=== PATIENT | male | born 1935 | race Caucasian/White ===

== ENCOUNTER → 2018-01-11 15:58 | Outpatient (CLI) | payer MEDICARE, SELFPAY ==
--- NOTE | 2018-01-11 16:06 | XR_ITS ---
EXAM: XR lumbar spine min 4V HISTORY: ITS.REASON: LOW BACK PAIN,H/O PROSTATE AND BLADDER CA ORDERING PHYSICIAN: Leighton Tamayo PATIENT AGE: 82 years COMPARISON: 06/11/2011, 12/23/2016 FINDINGS: Minimal dextroscoliosis. Mild degenerative disc disease is present from L1 to S1 with some decrease in the disc spaces endplate sclerosis and osteophyte formation. Facet arthritic changes are present at L4-L5 and L5-S1. No fracture or dislocation. No lytic or blastic change. There is some sclerosis of the left SI joint similar to an older exam of 06/11/2011. IMPRESSION: Lumbar spondylosis with degenerative disc disease and facet arthritic change. No fracture or bony destructive or blastic process
== END ==
PROVIDERS: PCP Internal Medicine; Visit Provider Internal Medicine
DX: M54.5 Low back pain (principal); Z85.46 Personal history of malignant neoplasm of prostate; Z85.51 Personal history of malignant neoplasm of bladder
CPT/HCPCS: 72110

== ENCOUNTER → 2018-01-25 10:14 | Outpatient (CLI) | payer MEDICARE, SELFPAY ==
--- NOTE | 2018-01-25 10:20 | CT_ITS ---
CT head/brain wo con HISTORY: ITS.REASON: VERTIGO, LOSS OF BALANCE, FORGETFULNESS ORDERING PHYSICIAN: Leighton Tamayo PATIENT AGE: 82 years COMPARISON: None TECHNIQUE: Axial images obtained without contrast. Brain and bone windows reviewed. All CT scans at the facility use one or more dose reduction, viz: automated exposure control; ma/kV adjustment per patient size (including targeted exams where dose is matched to indication; i.e. head); or iterative reconstruction technique. FINDINGS: No midline shift, mass effect, intracranial hemorrhage, hydrocephalus, or extra-axial fluid collection is evident. There is generalized atrophy with periventricular ischemic gliotic change. There is mild prominence of the occipital horn of the left lateral ventricle. This is of questioned clinical significance The calvarium has an unremarkable appearance. No mastoid effusion. No sinus air-fluid levels.. IMPRESSION: No acute intracranial findings. Atrophy with mild periventricular ischemic gliotic change and nonspecific mild prominence of the occipital horn of left lateral ventricle
== END ==
PROVIDERS: PCP Internal Medicine; Visit Provider Internal Medicine
DX: R42 Dizziness and giddiness (principal)
CPT/HCPCS: 70450

== ENCOUNTER → 2019-05-11 07:39 | Outpatient (CLI) | payer MEDICARE, SELFPAY ==
--- NOTE | 2019-05-11 08:14 | CA_ITS ---
APPROVED REPORT EXAM: Comprehensive 2D, Doppler, and color-flow Echocardiogram Global Compensation Manager: Myra Bonds RVT Ht: 0 ft 6 in Wt: 138lbs BSA: 0.30 BP: 162/81 mmHg Indications: Shortness of Breath, Hypertension,Bladder Ca, Prostate Ca 2D Dimensions LVOT 1.60 cm (M/F) 1.5-2.5 M-Mode Dimensions RVDd 2.30 cm (0.9-2.6) LA Diam 3.40 cm (1.9-4.0) LVDd 4.80 cm (3.5-5.7) Ao Diam 2.30 cm (2.0-3.7) LVDs 3.30 cm (3.5-5.7) AV Cusp 1.70 cm (1.5-2.6) IVSd 0.90 cm (0.6-1.1) PWd 0.90 cm (0.6-1.1) EF (Teich) 59.20% FS 31.30% EDV (Teich) 108.00 mL ESV (Teich) 44.10 mL LV Diastology E/A Ratio 0.8 MED E' 10.20 (< 7 cm/sec) E'/MED E' Ratio 7.70 (>14) LAT E' 11.10 (<10 cm/sec) E/LAT E' Ratio 7.10 (>14) Aortic Valve AoV Peak Bob. 98.70 (50-130 cm/s) AO Peak GR. 4.00 mmHg Mitral Valve MV E Max Bob. 79.00 (40-130 cm/s) MV A Velocity 99.70 (40-130 cm/s) E/A Ratio 0.80 Pulmonary Valve PA Accel Time 183.00 (>120 msec) Tricuspid Valve TR P. Velocity 248.00 cm/s Left Ventricle Left atrium is mildly enlarged, left ventricle is normal size, mild concentric left ventricular hypertrophy, visually estimated ejection fraction 55% with no regional wall motion abnormality. Grade 1 diastolic dysfunction without tissue Doppler evidence of raise left atrial pressure. Right Ventricle Right atrium and right ventricular mildly enlarged with normal contractility. Aortic Valve Aortic valve is thickened and calcified leaflet chordae display good mobility, there is no aortic stenosis, there is mild aortic insufficiency. Mitral Valve Mitral valve is grossly normal, there is mild mitral regurgitation. Tricuspid Valve Tricuspid valve is grossly normal, there is mild tricuspid regurgitation, tricuspid regurgitation jet velocity is inadequate for calculation of the right ventricular systolic pressure. Pulmonic Valve Pulmonic valve is poorly visualized. Great Vessels Aortic root is normal size. Pericardium No significant pericardial effusion noted. Conclusion 1. Mildly enlarged left atrium, normal left ventricular size, mild concentric left ventricular hypertrophy, visually estimated ejection fraction 55% with no regional wall motion abnormality, grade 1 diastolic dysfunction seen without tissue Doppler evidence of raise left atrial pressure. 2. Mildly enlarged right ventricle with normal contractility. 3. Thickened and calcified aortic valve without aortic stenosis, there is mild aortic insufficiency. 4. Mild mitral and tricuspid regurgitation 5. No significant pericardial effusion noted. Electronically signed by : Nate Kumar, 05/12/2019 10:19:23
== END ==
PROVIDERS: PCP Internal Medicine; Visit Provider Internal Medicine
DX: R06.09 Other forms of dyspnea (principal)
CPT/HCPCS: 93306

== ENCOUNTER → 2020-12-10 14:39 | Outpatient (CLI) | payer MEDICARE, SELFPAY ==
--- NOTE | 2020-12-10 14:45 | XR_ITS ---
PROCEDURE: XR KNEE LT 3V CLINICAL INDICATION: BILATERAL KNEE PAIN COMPARISON: No exams were available for comparison FINDINGS: No fracture or dislocation. No lytic or blastic change. There is normal mineralization. There is slight decrease in the medial joint space suggesting minimal osteoarthritic change. There is generalized vascular calcification. Other findings:None. IMPRESSION: Minimal osteoarthritic change medial compartment left knee Dictated by: Young Sanchez MD 12/10/2020 15:14 Young Sanchez MD in [facility] 12/10/2020 15:14
--- NOTE | 2020-12-10 14:45 | XR_ITS ---
PROCEDURE: XR KNEE RT 3V CLINICAL INDICATION: BILATERAL KNEE PAIN COMPARISON: No exams were available for comparison FINDINGS: No fracture or dislocation. No lytic or blastic change. There is normal mineralization. Minimal osteoarthritic changes are present at the patellofemoral joint and medial compartment. Generalized vascular calcification noted. Other findings:There is a bipartite patella as a normal variant. IMPRESSION: Minimal osteoarthritic change right knee Dictated by: Young Sanchez MD 12/10/2020 15:13 Yougn Sanchez MD in [facility] 12/10/2020 15:13
== END ==
PROVIDERS: PCP Internal Medicine; Visit Provider Internal Medicine
DX: M25.562 Pain in left knee (principal); M25.561 Pain in right knee
CPT/HCPCS: 73562

== ENCOUNTER → 2021-04-09 09:39 | Outpatient (CLI) | payer MEDICARE, SELFPAY ==
--- NOTE | 2021-04-09 09:50 | XR_ITS ---
PROCEDURE: XR MULTIPLE SPINE 6+V CLINICAL INDICATION: MID AND LOWER BACK PAIN, HX OF PROSTATE AND BLADDER CANCER COMPARISON: CR LS5 LUMBAR SPINE 5 VIEWS from 12/23/2016 FINDINGS: Thoracic spine: Normal alignment. No fracture or dislocation. No lytic or blastic change. Mild degenerative changes. Minimal lower thoracic curvature convex left Lumbar spine: Minimal lumbar curvature convex right. No fracture or dislocation. No lytic or blastic change. Degenerative disc disease is present at L4 L5 and L5-S1. IMPRESSION: Degenerative changes. No fracture. No lytic or blastic change. Dictated by: Young Sanchez MD 04/09/2021 10:33 Young Sanchez MD in [facility] 04/09/2021 10:33
== END ==
PROVIDERS: PCP Internal Medicine; Visit Provider Internal Medicine
DX: M54.6 Pain in thoracic spine (principal); M54.5 Low back pain; Z85.46 Personal history of malignant neoplasm of prostate; Z85.51 Personal history of malignant neoplasm of bladder
CPT/HCPCS: 72084

== ENCOUNTER → 2021-04-26 08:40 | Outpatient (CLI) | payer MEDICARE, SELFPAY ==
--- NOTE | 2021-04-26 08:43 | NM_ITS ---
PROCEDURE: NM BONE SCAN WHOLE BODY CLINICAL INDICATION: LOW BACK PAIN, DJD, ? METS TO MID/LOWER SPINE COMPARISON: CR XR MULTIPLE SPINE 6+V from 04/09/2021 FINDINGS: Dose: 26.1 mCi technetium MDP There is slight increased activity in the SI joints on both sides which is nonspecific. No focal areas of increased activity evident that would indicate blastic metastasis. There is prominent activity within the urinary bladder despite patient trying to empty the bladder before the exam. Contaminant activity present between the thighs. IMPRESSION: No convincing evidence of metastatic disease Dictated by: Young Sanchez MD 04/27/2021 11:11 Young Sanchez MD in [facility] 04/27/2021 11:11
== END ==
PROVIDERS: PCP Internal Medicine; Visit Provider Internal Medicine
DX: M51.36 Other intervertebral disc degeneration, lumbar region (principal)
CPT/HCPCS: 78306; A9503

== ENCOUNTER → 2021-10-09 12:32 | Outpatient (CLI) | payer MEDICARE, SELFPAY ==
[2021-10-09 13:17] LABS: Basophils % 0.5 % (0.1-2.0); Eosinophils # 0.1 K/mm3 (0.0-0.4); Hematocrit 38.1 % (42.0-52.0); Lymphocytes # 1.2 K/mm3 (0.7-4.5); Lymphocytes % 23.5 % (10-50); Mean Corpuscular HGB Conc 31.6 g/dL (31.8-35.4); Mean Corpuscular Hemoglobin 32.7 pg (27.0-31.2); Mean Corpuscular Volume 103.3 fl (80-94); Mean Platelet Volume 9.5 fl (7.4-10.4); Monocytes # 0.3 K/mm3 (0.1-1.0); Monocytes % 5.1 % (1.7-9.3); Neutrophils # 3.5 K/mm3 (1.8-7.8); Neutrophils % 69.8 % (37.0-80.0); Platelet Count 199 K/mm3 (142-424); Red Blood Count 3.69 M/mm3 (4.60-6.20); Red Cell Distribution Width 13.8 % (11.5-17.5)
[2021-10-09 15:09] LABS: Alanine Aminotransferase 19 U/L (12-78); Albumin Level 3.8 g/dl (3.5-5.0); Albumin/Globulin Ratio 1.3 (1.1-1.8); Alkaline Phosphatase 54 U/L (38-126); Anion Gap 13.4 mEq/L (5-15); Aspartate Amino Transferase 30 U/L (17-59); Bilirubin,Total 0.6 mg/dl (0.2-1.3); Blood Urea Nitrogen 20 mg/dl (9-20); Calcium 8.8 mg/dl (8.4-10.2); Carbon Dioxide 23 mmol/L (22.0-30.0); Chloride 107 mmol/L (98-107); Chol/HDL Ratio 3.1 (1-3.5); Cholesterol 152 mg/dl (140-200); Estimated Glomerular Filt Rate 107 ml/min (>60); GFR (African American) 130 ML/MIN (>60); Globulin 2.9 g/dL (1.3-3.2); Glucose 82 mg/dl (74-100); HDL Cholesterol 49 mg/dl (40-60); Potassium 4.4 mmoL/L (3.5-5.1); Sodium 139 mmol/L (136-145); Total Protein,Serum 6.7 g/dl (6.3-8.2); Triglycerides 88 mg/dl (30-150); VLDL Cholesterol 18 mg/dL (0-40)
[2021-10-09 15:21] LABS: Direct LDL Cholesterol 76.56 mg/dL (100-129)
[2021-10-09 15:39] LABS: Prostate Specific Ag Screen < 0.1 ng/ml (0.0-4.0)
== END ==
PROVIDERS: Visit Provider Internal Medicine
DX: I10 Essential (primary) hypertension (principal); I95.1 Orthostatic hypotension; Z12.5 Encounter for screening for malignant neoplasm of prostate; Z86.51 Personal history of combat and operational stress reaction; Z85.46 Personal history of malignant neoplasm of prostate
CPT/HCPCS: 80053; 80061; 85025; G0103

== ENCOUNTER 2021-11-12 11:58 | Day surgery (SDC) | payer MEDICARE, SELFPAY ==
[2021-11-12 12:06] VITALS: BMI 19.8
--- NOTE | 2021-11-12 12:15 | PC.NURSE ---
1215-rn attempted to anchor hill catheter with 16 fr coude;unable to place d/t coiling in the prostate;will call to hill placement.
--- NOTE | 2021-11-12 12:35 | PC.NURSE ---
1235- at bedside to anchor hill; unsuccessful will take to surgery for cystoscopy.
--- NOTE | 2021-11-12 13:00 | PC.NURSE ---
1300-gave report to adelaide, surgery rn.
[2021-11-12 13:02] VITALS: BP 165/85; PULSE 75; RESP 16; TEMP 37.3; O2SAT 98
[2021-11-12 13:40] VITALS: BP 162/88; PULSE 82; RESP 16; TEMP 37.6; O2SAT 98
[2021-11-12 14:10] VITALS: BP 162/88; PULSE 82; RESP 16; TEMP 37.6; O2SAT 98
--- NOTE | 2021-11-12 15:51 | HMH.CONS ---
*Admission Date: 11/12/21 *Reason for consult:: Difficult Young placement *History of present illness: 86-year-old white male presented to the Dr. Tamayo today with lower abdominal discomfort and difficulty voiding. Dr. Tamayo sent patient over to infusion for catheter placement but the nurses were unable to pass the catheter. I was consulted and tried to pass a 16 Vietnamese coud? tip without success. I have recommended that we proceed with cystoscopic evaluation. Patient does have a distant history of bladder cancer and prostate cancer. He denies any associated hematuria. He is currently being treated for urinary tract infection. [facility] History Medical History: Reports:: Cancer, Hypertension Denies:: Seizures *Have you ever received a pneumonia vaccine?: No *Have you received a flu vaccine this season?: Yes Other Medical History: Reports: Arthritis, Radiation Therapy Other Surgeries: Yes: No Previous Surgery, Colonoscopy Amputation: No Fractures: No - *Social History Smoking Status: Former smoker Tobacco Type: cigarettes # Packs/Day (cigarettes): 1 #Yrs smoked (if former smoker): 22 Alcohol Intake: current Alcohol Intake Frequency:: holidays/special occasions only Substance Use Type: denies use *Occupational Status:: employed Housing: house Household Members: spouse, family *Travel in the last 8 weeks: None Family Hx:: Cancer Review of Systems - Review of Systems Review of systems:: pertinent systems reviewed and negative unless documented below Meds Home Medications Medication Instructions Recorded Confirmed Type acetaminophen 325 mg capsule 325 mg PO Q6H PRN 12/03/17 02/01/21 History aspirin 81 mg tablet,delayed 81 mg PO DAILY tab 12/03/17 02/01/21 History release calcium carbonate 200 mg calcium 200 mg PO TID tab 12/03/17 02/01/21 History (500 mg) chewable tablet cholecalciferol (vitamin D3) 25 1,000 unit PO DAILY cap 12/03/17 02/01/21 History mcg (1,000 unit) capsule ibuprofen 200 mg tablet PO .prn tab 12/03/17 02/01/21 History losartan 100 mg tablet 100 mg PO DAILY tab 12/03/17 02/01/21 History vitamins A,C,C-xilz-amcdgy 7,160 2 tab PO DAILY tab 12/03/17 02/01/21 History unit-113 mg-100 unit tablet vitamins B1 B6 B12 intramuscular each IM 12/03/17 02/01/21 History donepezil 5 mg tablet 5 mg PO DAILY 01/06/19 02/01/21 History Allergies Allergy/AdvReac Type Severity Reaction Status Date / Time No Known Allergies Allergy Verified 11/12/21 13:27 Exam Vital signs and Labs for Last 24 Hours: Temp Pulse Resp BP Pulse Ox 99.7 F H 82 16 162/88 H 98 11/12/21 14:10 11/12/21 14:10 11/12/21 14:10 11/12/21 14:10 11/12/21 14:10 I & O for Last 24 hours: Intake & Output 11/09/21 11/10/21 11/11/21 11/12/21 23:59 23:59 23:59 23:59 Weight 57.606 kg - Constitutional no acute distress - *Routine HEENT Exam Head: Present: normocephalic Eye: Present: EOMI, PERRL ENT: Present: mucous membranes moist - *Routine Neck Exam Present: supple. Absent: lymphadenopathy - *Routine Respiratory Exam Absent: accessory muscle use - *Routine Cardiovascular Exam Absent: JVD - *Routine Abdominal Exam Present: soft, normoactive bowel sounds. Absent: tenderness - *Routine Extremities Exam Absent: cyanosis, clubbing, edema - *Routine Skin Exam Present: warm. Absent: rash - *Routine Neurological Exam Present: alert, oriented X3 Assessment and Plan (1) Urethral stricture Status: Acute Category: Medical Code(s): N35.919 - Unspecified urethral stricture, male, unspecified site Attempt at placing a Young catheter was unsuccessful so cystoscopy was performed. Cystoscopy revealed a tight urethral stricture in the proximal pendulous urethra. Guidewire was passed through the scope and through the stricture and the scope removed. Cass dilators then used to dilate the stricture from 14 Vietnamese to 20 Vietnamese. Cystoscopy was performed showing dilation of the stricture
== END 2021-11-12 14:10 | disposition home or self-care (01) ==
PROVIDERS: Urology; PCP Internal Medicine; Visit Provider Internal Medicine
PROC: (CPT 52281; principal; 2021-11-12 13:15)
DX: N32.0 Bladder-neck obstruction (principal); N32.89 Other specified disorders of bladder; I10 Essential (primary) hypertension; Z85.46 Personal history of malignant neoplasm of prostate; Z85.51 Personal history of malignant neoplasm of bladder; Z79.899 Other long term (current) drug therapy; Z87.891 Personal history of nicotine dependence
CPT/HCPCS: 52281

== ENCOUNTER 2021-11-13 10:16 | Emergency (ER) | payer MEDICARE, SELFPAY ==
[2021-11-13] VITALS (13 sets, daily range): BP systolic 110–160; BP diastolic 56–93; PULSE 75–90; RESP 16; TEMP 36.8–36.9; O2SAT 93–99; BMI 20.5
--- NOTE | 2021-11-13 10:40 | XR_ITS ---
FINAL REPORT CLINICAL HISTORY: fall, ABRASION POSTERIOR , PAIN FINDINGS: LEFT ELBOW The order is for right elbow but the images are labeled left. 3 views were obtained. There is no acute fracture or dislocation. There are mild degenerative changes. There is no evidence of a joint effusion. IMPRESSION: No acute bony abnormality. Reviewed, Interpreted and Dictated by Arcenio Escobar III, MD Transcribed by Leigh Crisostomo Authenticated by Arcenio Escobar III, MD on 11/13/2021 01:03:23 PM [facility]
--- NOTE | 2021-11-13 10:40 | XR_ITS ---
FINAL REPORT CLINICAL HISTORY: fall, PAIN FINDINGS: SINGLE VIEW PELVIS A single view of the pelvis was obtained. There is no acute fracture or dislocation. There are mild degenerative changes of the hips. There are postoperative changes in the lower pelvis. There is a presumed bladder catheter. IMPRESSION: No acute bony abnormality. Reviewed, Interpreted and Dictated by Arcenio Escobar III, MD Transcribed by Leigh Crisostomo Authenticated by Arcenio Escobar III, MD on 11/13/2021 01:03:23 PM [facility]
--- NOTE | 2021-11-13 10:40 | CT_ITS ---
FINAL REPORT CLINICAL HISTORY: fall, PAIN COMPARISON: 01/25/2018 FINDINGS: Axial images of the head were obtained without contrast. Coronal reformatted images were also obtained. This study was performed with techniques to keep radiation doses as low as reasonably achievable (ALARA). Individualized dose reduction techniques using automated exposure control or adjustment of mA and/or kV according to the patient's size were employed. There is generalized age-appropriate atrophy. Periventricular low-attenuation areas are seen consistent with mild chronic ischemic changes. There is stable mild ventriculomegaly. There is no evidence of intracranial hemorrhage or mass. There is no evidence of acute infarct. There is no evidence of shift of the midline structures. There are small calcifications bilaterally which are stable. No skull abnormality is seen on the bone window images. IMPRESSION: Atrophy and mild periventricular chronic ischemic changes. No acute intracranial abnormality identified. Reviewed, Interpreted and Dictated by Arcenio Escobar III, MD Transcribed by Negra Tsai Authenticated by Arcenio Escobar III, MD on 11/13/2021 12:34:[address] [facility]
--- NOTE | 2021-11-13 10:40 | CT_ITS ---
FINAL REPORT CLINICAL HISTORY: fall, NECK PAIN FINDINGS: Axial CT images of the cervical spine were obtained without contrast. Sagittal and coronal reformatted images were also obtained. This study was performed with techniques to keep radiation doses as low as reasonably achievable (ALARA). Individualized dose reduction techniques using automated exposure control or adjustment of mA and/or kV according to the patient's size were employed. There is no evidence of fracture or dislocation. There are severe degenerative changes. There is multilevel, mild neural foraminal narrowing. There is no significant central canal stenosis. No paraspinous soft tissue abnormality is seen. Limited images of the upper thorax are unremarkable. IMPRESSION: No fracture or acute bony abnormality identified. Degenerative changes. Reviewed, Interpreted and Dictated by Arcenio Escobar III, MD Transcribed by Negra Tsai Authenticated by Arcenio Escobar III, MD on 11/13/2021 12:34:54 PM [facility]
--- NOTE | 2021-11-13 11:02 | XR_ITS ---
FINAL REPORT CLINICAL HISTORY: fall, weakness FINDINGS: SINGLE VIEW CHEST. The heart is normal in size. The mediastinum is unremarkable. The lungs are clear. There is no pneumothorax. IMPRESSION: No acute process. No pneumothorax. Reviewed, Interpreted and Dictated by Arcenio Escobar III, MD Transcribed by Leigh Crisostomo Authenticated by Arcenio Escobar III, MD on 11/13/2021 01:03:23 PM [facility]
--- NOTE | 2021-11-13 11:02 | HMH.EDGENADL ---
ED Disposition Clinical Impression: Weakness UTI (urinary tract infection) Qualifiers: Urinary tract infection type: site unspecified Hematuria presence: without hematuria Qualified Code(s): N39.0 - Urinary tract infection, site not specified Disposition: Xfer SNF Condition on Discharge: Fair Additional Instructions: Continue home medications including Levaquin as previously prescribed. Referrals: Leighton Tamayo [Primary Care Provider] - - Critical Care Critical Care Time: No Attestation: On 11/13/21, the high probability of a clinically significant, sudden or life threatening deterioration of the following system(s) required my full and direct attention, intervention and personal management. The time I documented below is in addition to time spent performing reported procedures but includes the following listed in this critical care notation. Medical Decision Making - Zeke Inquiry Pt receiving controlled substance: No Vital Signs: 11/13/21 10:17 11/13/21 10:28 11/13/21 10:31 Temperature 98.3 F Temperature Source Oral Pulse Rate 85 84 Pulse Rate [Right Radial] 75 Respiratory Rate 16 Blood Pressure 114/68 110/58 L Blood Pressure [Right Arm] 114/68 Blood Pressure Mean [Right Arm] 83 Blood Pressure Source [Right Arm] Automatic Cuff Blood Pressure Position [Right Arm] Sitting 02 Sat by Pulse Oximetry 94 L 93 L Oxygen Delivery Method Room Air 11/13/21 11:01 11/13/21 12:00 11/13/21 12:30 Temperature Temperature Source Pulse Rate 77 78 79 Pulse Rate [Right Radial] Respiratory Rate Blood Pressure 160/78 H 143/93 H 119/65 Blood Pressure [Right Arm] Blood Pressure Mean [Right Arm] Blood Pressure Source [Right Arm] Blood Pressure Position [Right Arm] 02 Sat by Pulse Oximetry 98 98 96 Oxygen Delivery Method 11/13/21 13:01 11/13/21 13:30 Temperature Temperature Source Pulse Rate 77 76 Pulse Rate [Right Radial] Respiratory Rate Blood Pressure 151/68 H 147/70 H Blood Pressure [Right Arm] Blood Pressure Mean [Right Arm] Blood Pressure Source [Right Arm] Blood Pressure Position [Right Arm] 02 Sat by Pulse Oximetry 99 98 Oxygen Delivery Method - Lab Data Lab Results 11/13/21 11:44: WBC 7.4, RBC 3.72 L, Hgb 12.4 L, Hct 37.6 L, MCV 101.1 H, MCH 33.5 H, MCHC 33.1, RDW 13.9, Plt Count 182, MPV 8.5, Neut % (Auto) 84.2 H, Lymph % (Auto) 9.4 L, Mccracken % (Auto) 5.2, Eos % (Auto) 0.1, Baso % (Auto) 1.1, Neut # (Auto) 6.2, Lymph # (Auto) 0.7, Mccracken # (Auto) 0.4, Eos # (Auto) 0.0, Baso # (Auto) 0.1 11/13/21 11:44: Sodium 135 L, Potassium 4.2, Chloride 103, Carbon Dioxide 27, Anion Gap 9.2, BUN 19, Creatinine 0.80, Estimated Creat Clear 43, Estimated GFR 92, Est GFR ( Amer) 111, Glucose 91, Calcium 8.7, Total Bilirubin 1.1, AST 46, ALT 20, Alkaline Phosphatase 70, Troponin I 0.01, Total Protein 7.1, Albumin 3.8, Globulin 3.3 H, Albumin/Globulin Ratio 1.2 11/13/21 11:48: SARS-CoV-2 (PCR) Not detected, Influenza A Untype (PCR) Not detected, Influenza Type B (PCR) Not detected 11/13/21 14:19: Urine Color Yellow, Urine Appearance Clear, Urine pH 6.5, Ur Specific [place] >= 1.030, Urine Protein 3+, Urine Glucose (UA) Negative, Urine Ketones 3+, Urine Blood 3+, Urine Nitrate Negative, Urine Bilirubin 1+ A, Urine Urobilinogen 0.2, Ur Leukocyte Esterase Negative, Urine RBC Tntc, Urine WBC 10-20, Ur Squamous Epith Cells None, Urine Bacteria 1+, Urine Yeast 1+ Result diagrams: 11/13/21 11:44 11/13/21 11:44 Orders (Tests/Meds): ED MEDICATIONS Generic Name Dose Route Start Last Admin Trade Name Freq PRN Reason Stop Dose Admin Lactated Ringer's 1,000 mls @ 75 mls/hr 11/13/21 14:15 11/13/21 14:42 Lactated Ringer's 1000 Ml Bag IV 12/13/21 14:14 75 mls/hr .[id number] MARCOS Administration Sodium Chloride 10 ml 11/13/21 10:43 Sodium Chloride 0.9% 10ml Flush Syringe IV 12/13/21 10:42 NEEDED PRN Maintain IV Site ORDERS Cat
--- NOTE | 2021-11-13 11:05 | PC.NURSE ---
Patient going to CT at this time.
--- NOTE | 2021-11-13 11:06 | CT_ITS ---
FINAL REPORT CLINICAL HISTORY: fall, LEFT JAW PAIN FINDINGS: CT FACIAL BONES TECHNIQUE: Thin section axial CT images of the facial bones and sinuses were obtained without contrast. Coronal reformatted images were also obtained. This study was performed with techniques to keep radiation doses as low as reasonably achievable, (ALARA). Individualized dose reduction techniques using automated exposure control or adjustment of mA and/or kV according to the patient's size were employed. FINDINGS: There is no evidence of fracture.The orbits are intact.The globes are intact.No sinus fluid levels are identified. There are multiple missing and carious teeth.No soft tissue mass is seen. IMPRESSION: No fracture or acute bony abnormality identified. Reviewed, Interpreted and Dictated by Arcenio Escobar III, MD Transcribed by Negra Tsai Authenticated by Arcenio Escobar III, MD on 11/13/2021 12:34:[address] [facility]
--- NOTE | 2021-11-13 11:36 | PC.NURSE ---
patient back from CT with electrical equipment technician by genaro
--- NOTE | 2021-11-13 11:43 | ECG_ITS ---
APPROVED REPORT Exam: Resting ECG HR:78 bpm ECG Measurements Heart Rate 78 AXES OK 157 P 60 QRSd 81 QRS 46 QT 370 T 49 QTc 403 Conclusion SINUS RHYTHM NORMAL ECG UNCONFIRMED REPORT Electronically signed by : Rajat Longoria MD 11/14/2021 11:48:47
[2021-11-13 11:55] LABS: Coronavirus 19, PCR Not Detected (NotDetected); Influenza A, PCR Not Detected (NotDetected); Influenza B, PCR Not Detected (NotDetected)
[2021-11-13 11:58] LABS: Basophils # 0.1 K/mm3 (0-0.2); Basophils % 1.1 % (0.1-2.0); Eosinophils % 0.1 % (0.1-12.0); Hematocrit 37.6 % (42.0-52.0); Hemoglobin 12.4 g/dL (14.1-18.0); Lymphocytes # 0.7 K/mm3 (0.7-4.5); Lymphocytes % 9.4 % (10-50); Mean Corpuscular HGB Conc 33.1 g/dL (31.8-35.4); Mean Corpuscular Hemoglobin 33.5 pg (27.0-31.2); Mean Corpuscular Volume 101.1 fl (80-94); Mean Platelet Volume 8.5 fl (7.4-10.4); Monocytes # 0.4 K/mm3 (0.1-1.0); Monocytes % 5.2 % (1.7-9.3); Neutrophils # 6.2 K/mm3 (1.8-7.8); Neutrophils % 84.2 % (37.0-80.0); Platelet Count 182 K/mm3 (142-424); Red Blood Count 3.72 M/mm3 (4.60-6.20); Red Cell Distribution Width 13.9 % (11.5-17.5); White Blood Count 7.4 K/mm3 (4.8-10.8)
--- NOTE | 2021-11-13 12:00 | PC.NURSE ---
unsuccess IV start however was able to obtain blood, specimens were sent to lab
[2021-11-13 12:01] LABS: Chloride 103 mmol/L (98-107)
[2021-11-13 12:02] LABS: Potassium 4.2 mmoL/L (3.5-5.1); Sodium 135 mmol/L (136-145)
[2021-11-13 12:04] LABS: Alanine Aminotransferase 20 U/L (12-78); Albumin Level 3.8 g/dl (3.5-5.0); Albumin/Globulin Ratio 1.2 (1.1-1.8); Alkaline Phosphatase 70 U/L (38-126); Anion Gap 9.2 mEq/L (5-15); Aspartate Amino Transferase 46 U/L (17-59); Bilirubin,Total 1.1 mg/dl (0.2-1.3); Blood Urea Nitrogen 19 mg/dl (9-20); Calcium 8.7 mg/dl (8.4-10.2); Carbon Dioxide 27 mmol/L (22.0-30.0); Creatinine Clearance Estimated 43 mL/min (50-200); Estimated Glomerular Filt Rate 92 ml/min (>60); GFR (African American) 111 ML/MIN (>60); Globulin 3.3 g/dL (1.3-3.2); Glucose 91 mg/dl (74-100); Total Protein,Serum 7.1 g/dl (6.3-8.2)
--- NOTE | 2021-11-13 12:17 | PC.NURSE ---
Rounded on patient at this time. Advised them we were waiting on CT reads, no new needs at this time. Pt resting in bed with family at bedside
[2021-11-13 12:18] LABS: Troponin I 0.01 ng/ml (0.00-0.034)
--- NOTE | 2021-11-13 13:55 | PC.NURSE ---
at bedside, speaking with son about POC.
--- NOTE | 2021-11-13 14:01 | PC.NURSE ---
came back in from the lobby and requested update. Advised pt's that MD had been in the room speaking with son about POC, and that we would be calling Dr. Carroll who was on for service patient's. Explained to pt's that Dr. Tamayo did not admit pt's to the hospital and whoever was covering service patients would admit to [facility] and today that would be Dr. Carroll.
--- NOTE | 2021-11-13 14:08 | PC.NURSE ---
CHRISTOPHER GALLO speaking with Dr. Carroll who is operation manager for service
--- NOTE | 2021-11-13 14:11 | PC.NURSE ---
Spoke with Shanna in care management and she has been notified of admisson
[2021-11-13 14:25] LABS: Microscopic, Urine URINE MICROSCOPIC (MICROSCOPIC)
--- NOTE | 2021-11-13 14:27 | PC.NURSE ---
contacted dr herring office medication list on pt. pt did not know the names of all of pts medications
--- NOTE | 2021-11-13 14:33 | PC.NURSE ---
Care Management at
[2021-11-13 14:34] LABS: Appearance,Urine CLEAR (Clear); Bilirubin,Urine 1+ (Negative); Blood, Urine 3+ (Negative); Color,Urine YELLOW (Yellow); Glucose,Urine (UA) Negative (Negative); Ketones,Urine 3+ (Negative); Leukocyte Esterase,Urine Negative (Negative); Nitrate,Urine Negative (Negative); PH,Urine 6.5 (5.0-8.5); Protein,Urine 3+ (Negative); Specific Gravity, Urine >= 1.030 (1.005-1.030); Urobilinogen,Urine 0.2 EU/dl (0.2)
--- NOTE | 2021-11-13 14:34 | PC.NURSE ---
ED MD at
--- NOTE | 2021-11-13 14:40 | PC.NURSE ---
care management staff suzette has spoken pt, , and son along with ER . Suzette is going to look for LTC placement for pt, if placement is found pt will not be admitted.
--- NOTE | 2021-11-13 14:49 | PC.NURSE ---
PT/OT at BS
[2021-11-13 15:04] LABS: Bacteria,Urine 1+ /lpf; RBC,Urine TNTC #/hpf (0-3); Yeast,Urine 1+ /lpf
--- NOTE | 2021-11-13 15:06 | SW/DCPLANNER ---
I spoke with patient and family regarding plans once medically stable for discharge. Patient and his family are interested in placement at [facility] level care and possibly even long term care administrator. I did speak with Ella at [facility] whom stated that she does have male available at this time. Patient information has been faxed to [facility]. I will follow up with Ella once information is reviewed. PT/OT did evaluate patient in the ED and has been faxed. I have also informed Ella that this patient is medically stable for discharge from ED.
--- NOTE | 2021-11-13 15:06 | HMH.PTEV ---
Physical Therapy Evaluation Rehab PT IP Evaluation Start: 11/13/21 15:00 Freq: NEEDED Status: Active Protocol: Document 11/13/21 15:00 ESTER (Rec: 11/13/21 15:06 ESTER [id number]) Subjective/History History History This is the initial Physical Therapy evaluation for Javier Ramirez. Pt is an 86 y/o male admitted to [facility] ED for weakness and fall at home. Pt reports he fell at home out of bed and his and he were unable to get him up. Subjective Subjective Pt was alert to name place and year, but was talking confused about his cane, which was not there, and the O2 sensor on his finger. Rehab PT IP Eval Objective Appearance Patient Behavior Cooperative Patient Orientation Place,Name,Year Difficulty following instructions moderate Speech Pattern Patient Baseline Ambulation Patient Able to Ambulate Yes Ambulation Observation IP General Gait Pattern Observation Shuffling Step,Hips Posterior to ANNE-MARIE,Trunk Posterior to ANNE-MARIE Ambulation Distance (feet) 5 Ambulation Assistive Device None Ambulation Ability Moderate x 2 (50% assist) Balance Ability to Arise Unable Sitting Balance Leans or slides in chair Standing Balance Unsteady Dynamic Sitting Balance Ability Fair Dynamic Standing Balance Ability Poor Transfers Bed Transfer Ability Moderate x 2 (50% assist) Chair Transfer Ability Moderate x 2 (50% assist) Sit to Stand Bed Transfer Ability Moderate x 2 (50% assist) Sit to Stand Chair Transfer Ability Moderate x 2 (50% assist) Rehab PT IP prob,goals,plan Problems Date of Evaluation: 11/13/21 PT IP Problems Bed Mobility,Transfers,Gait, Balance,Self care,Safety Rehab Potential Rehab Potential Fair Equipment Needs Assistive Devices Rolling / Wheeled Walker Plan PT Intervention Plan Bed Mobility,Transfers,Gait, Balance,Self care,Safety, Therapeutic Exercise PT Plan Frequency BID Duration LOS Discharge Goals Bed Transfer Ability Moderate x 2 (50% assist) Sit to Stand Chair Transfer Ability Moderate x 2 (50% assist) Ambulation Assistive Device None Ambulation Distance (feet) 5 Discharge Plan PT Discharge Plan Pt will benefit from skilled
--- NOTE | 2021-11-13 15:10 | HMH.OTEV ---
OT Inpatient Evaluation Rehab OT IP Evaluation Start: 11/13/21 15:01 Freq: ONCE Status: Complete Protocol: Document 11/13/21 15:01 ALEX (Rec: 11/13/21 15:09 [id number] Rehab OT IP Assessment Subjective History Pt oriented x 3, but was slightly confused while providing information about previous ADL independence. Pt was admitted on 11/13/21 due to weakness and a fall out of his bed. Pt reports prior to being in the hospital he lived at home with his . Pt claims he was independent with all ADLs until ~3-4 days ago. His and children complete all IADLs such as cooking, cleaning, laundry etc . Pt did use a cane during ambulation. The following information is copied from history and physical report: History obtained from patient' s son. The patient has dementia. Son states that he was recently diagnosed with a prostate infection. Came to the hospital yesterday to have a catheter inserted. He had to have a scope done by Dr. Bear because of urethral stricture and had a catheter inserted. He has fallen twice since then. He fell last night trying to go to the bathroom, confused about his catheter. That fall was unwitnessed. Son also says he tried to pull his catheter out last night. He also fell this morning when in the bathroom with his . Has a skin tear on his left elbow. Son states that he was so weak this morning that he had to carry him to the vehicle, patient could not bear weight and walk on his own. He denies any other injuries.
--- NOTE | 2021-11-13 15:40 | PC.NURSE ---
checked on pt at this time, offered pt a lunch tray, pt request a sandwich. contacting dietary for tray for pt.
--- NOTE | 2021-11-13 15:51 | PC.NURSE ---
PT sitting up in bed eating sandwhich and chips. Pillow provided and pt advised he had no other needs at this time. Son at bedside
--- NOTE | 2021-11-13 16:00 | PC.NURSE ---
julieth claudio staff member adelaide at [facility] to speak with pt about their facility
--- NOTE | 2021-11-13 16:23 | PC.NURSE ---
per [facility] staff pt will be accepted to their facility today and pt family state they will transport pt to [facility]. [facility] staff is making arrangements.
== END 2021-11-13 17:10 ==
PROVIDERS: Emergency Provider Emergency Medicine; PCP Internal Medicine
DX: N30.00 Acute cystitis without hematuria (principal); N35.919 Unspecified urethral stricture, male, unspecified site; I10 Essential (primary) hypertension; Z85.46 Personal history of malignant neoplasm of prostate; Z85.51 Personal history of malignant neoplasm of bladder; Z87.891 Personal history of nicotine dependence; W18.39XA Other fall on same level, initial encounter; Y92.019 Unspecified place in single-family (private) house as the place of occurrence of the external cause
CPT/HCPCS: 70450; 70486; 71045; 72125; 72170; 73080; 80053; 81001; 84484; 85025; 87086; 93005; 96360; 99284; C9803; U0003; U0005

== ENCOUNTER → 2021-12-12 14:10 | Outpatient (CLI) | payer MEDICARE, SELFPAY ==
--- NOTE | 2021-12-12 14:10 | MR_ITS ---
FINAL REPORT CLINICAL HISTORY: GAIT DISTURBANCES , PARKINSONIAN SYNDROME RIGHT SIDED TREMORS X 2 MONTHS DIZZINESS FINDINGS: Multiplanar MR imaging of the brain was performed without contrast. There is moderate age-appropriate atrophy. There are scattered foci of increased T2 signal in the cerebral white matter that have a nonspecific appearance but likely represent mild chronic ischemic/gliotic changes. There is no evidence of intracranial hemorrhage or mass. There is mild ventriculomegaly. No abnormal extra-axial fluid collection is seen. No abnormality is seen on the diffusion weighted images. The posterior fossa and brainstem are unremarkable. Normal major vessel vascular flow voids are seen. IMPRESSION: Age-appropriate atrophy and mild chronic ischemic/gliotic changes. No acute intracranial abnormality. Reviewed, Interpreted and Dictated by Arcenio Escobar III, MD Transcribed by Kandy Calvillo Authenticated by Arcenio Escobar III, MD on 12/12/2021 04:10:[address] [facility]
[2021-12-12 15:57] LABS: Basophils # 0.1 K/mm3 (0-0.2); Basophils % 1.1 % (0.1-2.0); Eosinophils # 0.1 K/mm3 (0.0-0.4); Eosinophils % 1.3 % (0.1-12.0); Hematocrit 35.5 % (42.0-52.0); Hemoglobin 11.6 g/dL (14.1-18.0); Lymphocytes # 1.1 K/mm3 (0.7-4.5); Mean Corpuscular HGB Conc 32.7 g/dL (31.8-35.4); Mean Corpuscular Hemoglobin 32.9 pg (27.0-31.2); Mean Corpuscular Volume 100.7 fl (80-94); Mean Platelet Volume 8.3 fl (7.4-10.4); Monocytes # 0.4 K/mm3 (0.1-1.0); Monocytes % 6.6 % (1.7-9.3); Neutrophils # 4.2 K/mm3 (1.8-7.8); Neutrophils % 72.1 % (37.0-80.0); Platelet Count 224 K/mm3 (142-424); Red Blood Count 3.53 M/mm3 (4.60-6.20); Red Cell Distribution Width 13.8 % (11.5-17.5); White Blood Count 5.9 K/mm3 (4.8-10.8)
[2021-12-12 16:43] LABS: Alanine Aminotransferase 14 U/L (12-78); Albumin Level 3.6 g/dl (3.5-5.0); Albumin/Globulin Ratio 1.1 (1.1-1.8); Alkaline Phosphatase 74 U/L (38-126); Anion Gap 10.9 mEq/L (5-15); Aspartate Amino Transferase 29 U/L (17-59); Bilirubin,Total 0.2 mg/dl (0.2-1.3); Blood Urea Nitrogen 19 mg/dl (9-20); Calcium 8.9 mg/dl (8.4-10.2); Carbon Dioxide 27 mmol/L (22.0-30.0); Chloride 103 mmol/L (98-107); Estimated Glomerular Filt Rate 107 ml/min (>60); GFR (African American) 129 ML/MIN (>60); Globulin 3.3 g/dL (1.3-3.2); Glucose 90 mg/dl (74-100); Potassium 3.9 mmoL/L (3.5-5.1); Sodium 137 mmol/L (136-145); Total Protein,Serum 6.9 g/dl (6.3-8.2)
[2021-12-12 17:31] LABS: Vitamin B12 538 pg/mL (239-931)
[2021-12-12 19:43] LABS: Folate 7.28 ng/mL
== END ==
PROVIDERS: PCP Internal Medicine; Visit Provider Specialist
DX: G20 Parkinson's disease (principal); R53.1 Weakness
CPT/HCPCS: 36415; 70551; 80053; 82607; 82746; 84443; 85025

== ENCOUNTER → 2022-03-30 07:30 | Outpatient (CLI) | payer MEDICARE, SELFPAY ==
[2022-03-30 07:56] LABS: Microscopic, Urine URINE MICROSCOPIC (MICROSCOPIC)
[2022-03-30 07:58] LABS: Appearance,Urine CLOUDY (Clear); Bilirubin,Urine Negative (Negative); Blood, Urine 2+ (Negative); Color,Urine YELLOW (Yellow); Glucose,Urine (UA) Negative (Negative); Ketones,Urine TRACE (Negative); Leukocyte Esterase,Urine 3+ (Negative); Nitrate,Urine Negative (Negative); Protein,Urine 2+ (Negative)
[2022-03-30 08:15] LABS: Bacteria,Urine 1+ /lpf; Squamous Epithelial Cell,Urine Occasional #/hpf (0-5); WBC,Urine TNTC #/hpf (0-3)
== END ==
PROVIDERS: PCP Family Medicine; Visit Provider Family Medicine
DX: N39.0 Urinary tract infection, site not specified (principal); N35.919 Unspecified urethral stricture, male, unspecified site; B96.1 Klebsiella pneumoniae [K. pneumoniae] as the cause of diseases classified elsewhere
CPT/HCPCS: 81001; 87086; 87088; 87186

== ENCOUNTER 2022-10-19 13:37 | Inpatient (IN) | payer MEDICARE, SELFPAY ==
[2022-10-19] VITALS (9 sets, daily range): BP systolic 91–136; BP diastolic 49–83; PULSE 72–83; RESP 16–23; TEMP 36.7–37; O2SAT 95–97; BMI 21.3
--- NOTE | 2022-10-19 13:48 | XR_ITS ---
PROCEDURE INFORMATION: Exam: XR Chest Exam date and time: 10/19/2022 2:06 PM Age: 86 years old Clinical indication: Condition or disease; Other: Concern for pneumonia TECHNIQUE: Imaging protocol: Radiologic exam of the chest. Views: 1 view. COMPARISON: CR XR CHEST AP 11/13/2021 11:21 AM FINDINGS: Lungs: Unremarkable. No consolidation. Pleural spaces: Unremarkable. No pleural effusion. No pneumothorax. Heart/Mediastinum: Unremarkable. No cardiomegaly. Bones/joints: Unremarkable. IMPRESSION: No acute findings.
[2022-10-19 14:00] LABS: Alanine Aminotransferase 14 U/L (12-78); Albumin Level 2.9 g/dl (3.5-5.0); Albumin/Globulin Ratio 0.9 (1.1-1.8); Alkaline Phosphatase 86 U/L (38-126); Anion Gap 8.3 mEq/L (5-15); Aspartate Amino Transferase 23 U/L (17-59); Bilirubin,Total 0.8 mg/dl (0.2-1.3); Blood Urea Nitrogen 21 mg/dl (9-20); Calcium 7.8 mg/dl (8.4-10.2); Carbon Dioxide 25 mmol/L (22.0-30.0); Chloride 106 mmol/L (98-107); Creatinine Clearance Estimated 46 mL/min (50-200); Estimated Glomerular Filt Rate 71 ml/min (>60); GFR (African American) 86 ML/MIN (>60); Globulin 3.4 g/dL (1.3-3.2); Glucose 107 mg/dl (74-100); Potassium 3.3 mmoL/L (3.5-5.1); Sodium 136 mmol/L (136-145); Total Protein,Serum 6.3 g/dl (6.3-8.2)
[2022-10-19 14:05] LABS: C-Reactive Protein 21.3 mg/L (0-4); Lactic Acid 1.4 mmol/L (0.7-2.1)
[2022-10-19 14:07] LABS: Basophils % 0.2 % (0.1-2.0); Eosinophils % 0.2 % (0.1-12.0); Hematocrit 28.9 % (42.0-52.0); Hemoglobin 9.4 g/dL (14.1-18.0); Lymphocytes # 0.2 K/mm3 (0.7-4.5); Mean Corpuscular HGB Conc 32.6 g/dL (31.8-35.4); Mean Corpuscular Hemoglobin 29.6 pg (27.0-31.2); Mean Corpuscular Volume 91.1 fl (80-94); Mean Platelet Volume 7.7 fl (7.4-10.4); Monocytes # 0.1 K/mm3 (0.1-1.0); Monocytes % 1.2 % (1.7-9.3); Neutrophils % 96.4 % (37.0-80.0); Platelet Count 267 K/mm3 (142-424); Red Blood Count 3.18 M/mm3 (4.60-6.20); Red Cell Distribution Width 14.3 % (11.5-17.5); White Blood Count 10.4 K/mm3 (4.8-10.8)
[2022-10-19 14:10] LABS: MANUAL DIFFERENTIAL MANUAL DIFFERENTIAL (MANUAL DIFF)
[2022-10-19 14:12] LABS: VBG HCO3 23.1 mmol/L (23-30); VBG Oxygen Saturation 97.8 % (50-70); VBG PCO2 34.6 mmol/L (35-51); VBG PH 7.44 mmol/L (7.31-7.41); VBG PO2 98.9 mmol/L (28-40); VBG Total CO2 24.1 mmol/L (23-27)
--- NOTE | 2022-10-19 14:13 | PC.NURSE ---
I&O cath completed by Matt Albert. RN Pt tolerated well. Urine collected.
[2022-10-19 14:17] LABS: Lymphocytes % 2 % (10-50); Neutrophils % 98 % (42-76); Platelet Estimate Normal; RBC Morphology Normal; Total Cells Counted 100
[2022-10-19 14:18] LABS: Microscopic, Urine URINE MICROSCOPIC (MICROSCOPIC)
[2022-10-19 14:19] LABS: Procalcitonin 26.3 ng/mL (0.0-2.0)
[2022-10-19 14:29] LABS: Appearance,Urine CLEAR (Clear); Bilirubin,Urine Negative (Negative); Blood, Urine 3+ (Negative); Color,Urine YELLOW (Yellow); Glucose,Urine (UA) Negative (Negative); Ketones,Urine Negative (Negative); Leukocyte Esterase,Urine 2+ (Negative); Nitrate,Urine Negative (Negative); Protein,Urine 1+ (Negative); Specific Gravity, Urine 1.015 (1.005-1.030); Urobilinogen,Urine 0.2 EU/dl (0.2)
[2022-10-19 14:39] LABS: Erythrocyte Sedimentation Rate > 140 mm/hr (0-20)
[2022-10-19 14:42] LABS: Bacteria,Urine 4+ /lpf; RBC,Urine 50-100 #/hpf (0-3); WBC,Urine 20-50 #/hpf (0-3)
--- NOTE | 2022-10-19 15:06 | PC.NURSE ---
CHRISTOPHER GALLO speaking with dr. alba (hospitalist)
[2022-10-19 15:09] LABS: Coronavirus 19, PCR Not Detected (NotDetected); Influenza A, PCR Not Detected (NotDetected); Influenza B, PCR Not Detected (NotDetected)
--- NOTE | 2022-10-19 15:42 | HMH.EDGENADL ---
Discharge Plan Disposition Patient Disposition: Admitted As Inpatient Condition: Fair Clinical Impressions Clinical Impression: UTI (urinary tract infection) Discharge ED Provider: Blaidmir Rangel General Adult HPI General Chief complaint: Altered Mental Status Stated complaint: AMS Time Seen by Provider: 10/19/22 13:45 Mode of Arrival: EMS Source of Information: EMS Limitations: Altered Mental Status Description of Symptoms (Recalled from ER Triage Doc. by RN): Patient presents to ED from [facility] via EMS due to AMS, increased lethargy, x1 day. Hx of reoccurent UTIs. Per EMS upon their arrival BP 82/56 and fever 102.7 axillary. TX tylenol 500 mg @1234. Baseline oriented x2 person and place. HX of dementia. History of Present Illness HPI narrative: Patient is a 86-year-old male with past medical history of bladder cancer and urethral stricture who presents via EMS from a nursing facility after concern for increased lethargy and altered mental status. He has a history of also recurrent urinary tract infections per his . Reported that his blood pressure was 82/56 at the nursing facility he had a temperature of 102.7. He was given Tylenol prior to transport. He is baseline only alert and oriented x2. He denies any chest or abdominal pain. He says he feels terrible . He also feels a little bit nauseous. History is somewhat limited due to his baseline dementia. Related Data Home Medications Medication Instructions Recorded Confirmed acetaminophen 325 mg capsule 325 mg PO Q6H PRN pain 12/03/17 03/24/22 (Tylenol) aspirin 81 mg tablet,delayed 81 mg PO DAILY heart 12/03/17 03/24/22 release (Adult Low Dose Aspirin) calcium carbonate 200 mg calcium 200 mg PO TID gerd 12/03/17 03/24/22 (500 mg) chewable tablet (Tums) cholecalciferol (vitamin D3) 25 1,000 unit PO DAILY Supplement 12/03/17 03/24/22 mcg (1,000 unit) capsule ibuprofen 200 mg tablet (Advil) 200 mg PO NEEDED PRN pain 12/03/17 03/24/22 losartan 100 mg tablet 100 mg PO MOWEFR bp 12/03/17 03/24/22 vitamins A,C,F-eihs-qudefq 2,148 2 tab PO DAILY eyes 12/03/17 03/24/22 mcg-113 mg-45 mg-17.4 mg tablet (PreserVision AREDS) vitamins B1 B6 B12 intramuscular 1 each IM DIRECTED Supplement 12/03/17 03/24/22 donepezil 5 mg tablet 5 mg PO HS memory 01/06/19 03/24/22 levofloxacin 500 mg tablet 500 mg PO DAILY prostate infection 11/13/21 03/24/22 tamsulosin 0.4 mg capsule 0.4 mg PO HS prostate 11/13/21 03/24/22 thiamine HCl (vitamin B1) 100 100 mg IM MONTHLY Supplement 11/13/21 03/24/22 mg/mL injection solution cefdinir 300 mg capsule 300 mg PO BID 12/09/21 03/24/22 multivitamin (One Daily 2 tab PO DAILY 12/09/21 03/24/22 Multivitamin tablet) Previous Rx's Medication Instructions Recorded carbidopa ER 23.75 mg-levodopa 95 1 cap PO TID #120 caps 12/09/21 mg capsule,extended release (Rytary) Allergies Allergy/AdvReac Type Severity Reaction Status Date / Time No Known Allergies Allergy Verified 03/24/22 15:12 [facility] Disclaimer: The information contained in this section may have been updated after the patient was seen, as this information can be updated by other users. Medical History (Updated 10/19/22 @ 15:13 by Bladimir Rangel MD) Cancer Dementia Hypertension Normal colonoscopy Surgical History (Updated 03/24/22 @ 14:53 by LYDIA Vicente) History of cancer surgery Social History (Updated 03/24/22 @ 16:46 by Corey Bear MD) Smoking Status: Unknown if ever smoked alcohol intake: current substance use type: denies use current occupational status: employed and retired Travel in the last 8 weeks: None household members: spouse and family housing: senior living ROS Obtained: Yes All systems reviewed & no additional complaints except as documented Physical Exam General General appearance: alert and in no apparent distress Head Head exam: atraumatic, normocephalic and nor
--- NOTE | 2022-10-19 15:44 | PC.NURSE ---
Report given to Cordell OLIVA
--- NOTE | 2022-10-19 15:49 | PC.NURSE ---
Family updated on plan of care.
--- NOTE | 2022-10-19 15:57 | PC.NURSE ---
Pt arrived to the floor at his time
--- NOTE | 2022-10-19 17:12 | EXP.HP ---
History of Present Illness *Admission Date: 10/19/22 *Reason for visit:: ams *History of present illness: Patient is a 86-year-old male with past medical history of bladder cancer and urethral stricture who presents via EMS from a nursing facility after concern for increased lethargy and altered mental status.? He has a history of also recurrent urinary tract infections per his .? Reported that his blood pressure was 82/56 at the nursing facility he had a temperature of 102.7.? He was given Tylenol prior to transport.? He is baseline only alert and oriented x2.? He denies any chest or abdominal pain.? He says he feels terrible .? He also feels a little bit nauseous.? History is somewhat limited due to his baseline dementia. history unable to be obtained due to encephalopathy. [facility] Disclaimer: The information contained in this section may have been updated after the patient was seen, as this information can be updated by other users. Medical History (Updated 10/19/22 @ 17:16 by Lon Diaz MD) Cancer Dementia Hypertension Normal colonoscopy Surgical History History of cancer surgery Social History Smoking Status: Unknown if ever smoked alcohol intake: current substance use type: denies use current occupational status: employed and retired Travel in the last 8 weeks: None household members: spouse and family housing: correction Review of Systems Review of Systems Review of systems:: unable to obtain Meds Home Medications and Allergies Home Medications Medication Instructions Recorded Confirmed Type acetaminophen 325 mg capsule 325 mg PO Q6H PRN pain 12/03/17 03/24/22 History (Tylenol) aspirin 81 mg tablet,delayed 81 mg PO DAILY heart 12/03/17 03/24/22 History release (Adult Low Dose Aspirin) calcium carbonate 200 mg calcium 200 mg PO TID gerd 12/03/17 03/24/22 History (500 mg) chewable tablet (Tums) cholecalciferol (vitamin D3) 25 1,000 unit PO DAILY Supplement 12/03/17 03/24/22 History mcg (1,000 unit) capsule ibuprofen 200 mg tablet (Advil) 200 mg PO NEEDED PRN pain 12/03/17 03/24/22 History losartan 100 mg tablet 100 mg PO MOWEFR bp 12/03/17 03/24/22 History vitamins A,C,H-gpko-oqgeaa 2,148 2 tab PO DAILY eyes 12/03/17 03/24/22 History mcg-113 mg-45 mg-17.4 mg tablet (PreserVision AREDS) vitamins B1 B6 B12 intramuscular 1 each IM DIRECTED Supplement 12/03/17 03/24/22 History donepezil 5 mg tablet 5 mg PO HS memory 01/06/19 03/24/22 History levofloxacin 500 mg tablet 500 mg PO DAILY prostate infection 11/13/21 03/24/22 History tamsulosin 0.4 mg capsule 0.4 mg PO HS prostate 11/13/21 03/24/22 History thiamine HCl (vitamin B1) 100 100 mg IM MONTHLY Supplement 11/13/21 03/24/22 History mg/mL injection solution carbidopa ER 23.75 mg-levodopa 95 1 cap PO TID #120 caps 12/09/21 03/24/22 Rx mg capsule,extended release (Rytary) cefdinir 300 mg capsule 300 mg PO BID 12/09/21 03/24/22 History multivitamin (One Daily 2 tab PO DAILY 12/09/21 03/24/22 History Multivitamin tablet) New Prescriptions to Start Prescriptions: Allergies Allergy/AdvReac Type Severity Reaction Status Date / Time No Known Allergies Allergy Verified 03/24/22 15:12 Exam Data for Last 24 hours Vital signs and Labs for Last 24 Hours: Temp Pulse Resp BP Pulse Ox 98.6 F 76 20 111/51 L 95 10/19/22 16:00 10/19/22 16:00 10/19/22 16:00 10/19/22 16:00 10/19/22 16:00 Laboratory Results - last 24 hr 10/19/22 13:38: WBC 10.4, RBC 3.18 L, Hgb 9.4 L, Hct 28.9 L, MCV 91.1, MCH 29.6, MCHC 32.6, RDW 14.3, Plt Count 267, MPV 7.7, Neut % (Auto) 96.4 H, Lymph % (Auto) 2.0 L, [place] % (Auto) 1.2 L, Eos % (Auto) 0.2, Baso % (Auto) 0.2, Neut # (Auto) 10.0 H, Lymph # (Auto) 0.2 L, [place] # (Auto) 0.1, Eos # (Auto) 0.0, Baso # (Auto) 0.0, Total Counted 100, Neutrophils % (Manu
--- NOTE | 2022-10-19 17:41 | PC.NURSE ---
new admit today for uti from [facility]. alert to person, able to follow commands. bladder scan revealed 200 approx 20 ml of uirne in bladder. md said to scan q6hrs if pt not voiding. [facility].
[2022-10-20] VITALS: BP 141/67; PULSE 56; RESP 18; TEMP 36.4; O2SAT 96
--- NOTE | 2022-10-20 00:16 | PC.NURSE ---
COURTESY ROUND PATIENT SLEEPING COMFORTABLY IN BED .TRASH EMPTIED . CALL LIGHT WITHIN REACH
[2022-10-20 04:00] VITALS: BP 110/59; PULSE 60; RESP 18; TEMP 36.4; O2SAT 18; BMI 20.4
[2022-10-20 06:29] LABS: Basophils % 0.4 % (0.1-2.0); Eosinophils % 0.3 % (0.1-12.0); Hematocrit 26.6 % (42.0-52.0); Hemoglobin 8.7 g/dL (14.1-18.0); Lymphocytes # 0.5 K/mm3 (0.7-4.5); Lymphocytes % 4.3 % (10-50); Mean Corpuscular HGB Conc 32.8 g/dL (31.8-35.4); Mean Corpuscular Volume 91.5 fl (80-94); Mean Platelet Volume 8.1 fl (7.4-10.4); Monocytes # 0.3 K/mm3 (0.1-1.0); Monocytes % 2.4 % (1.7-9.3); Neutrophils # 9.7 K/mm3 (1.8-7.8); Neutrophils % 92.6 % (37.0-80.0); Platelet Count 206 K/mm3 (142-424); Red Blood Count 2.91 M/mm3 (4.60-6.20); Red Cell Distribution Width 14.2 % (11.5-17.5); White Blood Count 10.5 K/mm3 (4.8-10.8)
[2022-10-20 06:30] LABS: MANUAL DIFFERENTIAL MANUAL DIFFERENTIAL (MANUAL DIFF)
[2022-10-20 06:42] LABS: Anion Gap 9.9 mEq/L (5-15); Blood Urea Nitrogen 22 mg/dl (9-20); Calcium 7.7 mg/dl (8.4-10.2); Carbon Dioxide 26 mmol/L (22.0-30.0); Chloride 106 mmol/L (98-107); Creatinine Clearance Estimated 43 mL/min (50-200); Estimated Glomerular Filt Rate 92 ml/min (>60); GFR (African American) 111 ML/MIN (>60); Glucose 75 mg/dl (74-100); Potassium 3.9 mmoL/L (3.5-5.1); Sodium 138 mmol/L (136-145)
[2022-10-20 07:10] LABS: Anisocytosis 1+; Hypochromasia 1+; Lymphocytes % 9 % (10-50); Macrocytosis 1+; Neutrophils % 91 % (42-76); Ovalocytes 1+; Platelet Estimate Normal; RBC Morphology Normal; Total Cells Counted 100
[2022-10-20 07:38] LABS: Iron 23 ug/dL (49-181)
[2022-10-20 07:48] LABS: Total Iron Binding Capacity 149 ug/dL (261-462)
[2022-10-20 08:00] VITALS: BP 124/66; PULSE 68; RESP 20; TEMP 36.4; O2SAT 98
--- NOTE | 2022-10-20 08:08 | SW/DCPLANNER ---
Addendum entered by Suzette Julian 10/20/22 14:43: Patient will return SNF level of care to [place] today. Per Ella Rahman patient will not need a COVID swab. Original Note: This patient currently resides at [facility] level of care. Updated patient information will be faxed to Ella grider/ [facility] this AM. Discharge date is unknown at this time.
[2022-10-20 08:16] LABS: Ferritin 249 ng/ml (17.9-464)
--- NOTE | 2022-10-20 09:08 | P.CONPHA_ITS ---
Pharmacy Intervention Comments: MEDICATION RECONCILIATION COMPLETED ON PATIENT USING MAR FROM [facility]. -ANGELLA MONTERO, FRANDYD
--- NOTE | 2022-10-20 09:08 | HMH.PHAINT1 ---
Pharmacy Intervention Comments: MEDICATION RECONCILIATION COMPLETED ON PATIENT USING MAR FROM [facility]. -ANGELLA MONTERO, FRANDYD
--- NOTE | 2022-10-20 14:12 | HMH.OTEV ---
OT Inpatient Evaluation Rehab OT IP Evaluation Start: 10/20/22 11:30 Freq: ONCE Status: Active Protocol: Document 10/20/22 13:54 MIRANDAPARMJIT (Rec: 10/20/22 14:11 EBENEZER [id number]) Rehab OT IP Assessment Subjective History Patient is a 86-year-old male with past medical history of bladder cancer and urethral stricture who presents via EMS from a nursing facility after concern for increased lethargy and altered mental status.? He has a history of also recurrent urinary tract infections per his .? Reported that his blood pressure was 82/56 at the nursing facility he had a temperature of 102.7.? He was given Tylenol prior to transport.? He is baseline only alert and oriented x2.? He denies any chest or abdominal pain.? He says he feels terrible .? He also feels a little bit nauseous.? History is somewhat limited due to his baseline dementia. History unable to be obtained due to encephalopathy. Patient lives in a nursing facility. Patient unable to provide accurate hx of PLOF at this time. Patient verbalize stated to use RW to ambulate. Subjective I can try to get up. Instructed Patient on proper hand and foot placement to complete supine->sit @ EOB requiring Min A. Patient sat up @ EOB SBA. No LOB noted. Instructed Patient on proper hand and foot placement to complete sit->stand transfer requiring Mod A x2. Patient stood up to 30 secs with Moderate x2 assistance. Patient had an incontinent episode and required Mod A to complete sit @ EOB ->supine. Objective Patient Orientation Person,Name Upper Extremity Yashira
--- NOTE | 2022-10-20 14:27 | HMH.PTEV ---
Physical Therapy Evaluation Rehab PT IP Evaluation Start: 10/20/22 11:30 Freq: ONCE Status: Active Protocol: Document 10/20/22 14:08 JEANETHDAVID (Rec: 10/20/22 14:25 SPENCER [id number]) Subjective/History History History Pt is an 86 year old male with a PMH significant for bladder cancer and urethral stricture that presented to the ED from a nursing facility via EMS due to increased lethargy and AMS. At the nursing facility pt was found to have 102.7 temperature and a BP of 82/ 56mmHg. While in the ED, pt was found to have a UTI and encephalopathy. History provided from pt limited due to baseline dementia. Subjective Subjective Pt presents supine in bed, pleasant and agreeable to therapy evaluation. Pt denies reports of pain at rest, states I am just really tired . Pt performed supine to sit on EOB transfer with min A x1, required VC for proper hand placement during transfer and VC/TC to scoot hips toward EOB . Once upright, pt was able to maintain static sitting with CGA for safety. Pt performed sit on EOB to stand transfer with RECRUITING ADMINISTRATOR and Mod A x2 for safety. VC/TC provided for pt to attempt ambulation, pt was unable to perform due to weakness and fatigue. Pt experienced an incontient bowel episode while standing and required mod A x2 to assist to supine bed, RN notified. Rehab PT IP Eval Objective Appearance Patient Behavior Fatigued,Distractible,Confused Patient Orientation Person,Place,Birthday Difficulty following instructions moderate Speech Pattern Soft-Spoken,Monotone,Mumbled, Poor Articulation Ambulation Patient Able to Ambulate No Balance Sitting Balance Leans or slides in chair Standing Cristina
--- NOTE | 2022-10-20 14:42 | PC.NURSE ---
Patient is refusing to eat meals. States he does not want a tray. His said this is normal for him. Patient has been drinking fluids and agreed to drink protein shake. Will continue to encourage oral intake
--- NOTE | 2022-10-20 15:08 | EXP.DC.SUM ---
General Admission date:: 10/19/22 Discharge date: 10/20/22 HPI HPI HPI: Patient is a 86-year-old male with past medical history of bladder cancer and urethral stricture who presents via EMS from a nursing facility after concern for increased lethargy and altered mental status.? He has a history of also recurrent urinary tract infections per his .? Reported that his blood pressure was 82/56 at the nursing facility he had a temperature of 102.7.? He was given Tylenol prior to transport.? He is baseline only alert and oriented x2.? He denies any chest or abdominal pain.? He says he feels terrible .? He also feels a little bit nauseous.? History is somewhat limited due to his baseline dementia. history unable to be obtained due to encephalopathy. Hospital Course Hospital Course Hospital Course: 86-year-old man with dementia and prostate cancer and urethral stricture presenting with complicated urinary tract infection and encephalopathy Complicated urinary tract infection -Initiated on Rocephin. Given previous culture with Klebsiella however patient switched to levofloxacin. Urine culture still pending at time of discharge. Will complete a total of 7 days of antibiotics, last dose due 10/26. Further adjustment pending results. Mentation has improved with initiation of antibiotics. Anticipate continued improvement to baseline mentation. Hypoactive delirium -Underlying dementia exacerbated by acute illness. Improved mentation by day of discharge. Continue home medications for memory. Patient was pleasant and cooperative during hospitalization. Urinary retention Urethral stricture -Able to void independently. This complicates his risk for recurrent UTI however. Would benefit from referral to urology vs consideration of indwelling catheter depending on family's goals of care. Iron deficient anemia noted during hospitalization. Iron studies low. Would benefit from oral iron therapy. Initiated on ferrous gluconate 324 mg daily. Patient did well during admission. Stable for discharge back to facility. Complete antibiotics at [place] Exam Data for Last 24 hours Vital signs and Labs for Last 24 Hours: Temp Pulse Resp BP Pulse Ox 97.5 F L 68 20 124/66 98 10/20/22 08:00 10/20/22 08:00 10/20/22 08:00 10/20/22 08:00 10/20/22 08:00 Laboratory Results - last 24 hr 10/19/22 13:38: SARS-CoV-2 (PCR) Not detected, Influenza A Untype (PCR) Not detected, Influenza Type B (PCR) Not detected 10/20/22 05:53: WBC 10.5, RBC 2.91 L, Hgb 8.7 L, Hct 26.6 L, MCV 91.5, MCH 30.0, MCHC 32.8, RDW 14.2, Plt Count 206, MPV 8.1, Neut % (Auto) 92.6 H, Lymph % (Auto) 4.3 L, [place] % (Auto) 2.4, Eos % (Auto) 0.3, Baso % (Auto) 0.4, Neut # (Auto) 9.7 H, Lymph # (Auto) 0.5 L, [place] # (Auto) 0.3, Eos # (Auto) 0.0, Baso # (Auto) 0.0, Total Counted 100, Neutrophils % (Manual) 91 H, Lymphocytes % (Manual) 9 L, Platelet Estimate Normal, RBC Morphology Normal, Hypochromasia 1+, Anisocytosis 1+, Macrocytosis 1+, Ovalocytes 1+ 10/20/22 05:53: Sodium 138, Potassium 3.9, Chloride 106, Carbon Dioxide 26, Anion Gap 9.9, BUN 22 H, Creatinine 0.80, Estimated Creat Clear 43, Estimated GFR 92, Est GFR ( Amer) 111 D, Glucose 75 D, Calcium 7.7 L 10/20/22 05:53: Iron 23 L, TIBC 149 L, Iron Saturation 15.13427, Ferritin 249 I & O for Last 24 hours: Intake & Output 10/17/22 10/18/22 10/19/22 10/20/22 23:59 23:59 23:59 23:59 Intake Total 1000 / 1000 600 / 600 Output Total 0 / 0 Balance 1000 / 1000 600 / 600 Weight 56.302 kg 57.6 kg Microbiology Reports for the Last 24 Hours: Microbiology 10/19/22 14:12 Urine,Catheterized Urine Culture - Preliminary NO GROWTH AFTER 24 HOURS Constitutional Constitutional: no acute distress, average body habitus and chronically ill appearing *Routine HEENT Exam Head: Present normocephalic Eye: Present EOMI and PERRL ENT: Present mucous membranes moist *Routine Neck Exa
[2022-10-20 16:00] VITALS: BP 109/55; PULSE 68; RESP 20; TEMP 37.2; O2SAT 98
--- NOTE | 2022-10-20 16:10 | PC.NURSE ---
Patient discharged back to [facility] with ambulance personnel. Chanelle notified of transfer via phone
--- NOTE | 2022-10-21 13:51 | CARE MANAGER ---
Contacted [facility] and discussed hospital discharge. They deny any questions or concerns. HAZEL Patrick
== END 2022-10-20 16:08 | DRG 690 ==
LOC: ER 15:13 → 2ND 15:47
PROVIDERS: Admitting Provider Student in an Organized Health Care Education/Training Program; Emergency Provider Student in an Organized Health Care Education/Training Program; PCP Family Medicine; Visit Provider Student in an Organized Health Care Education/Training Program
DX: N39.0 Urinary tract infection, site not specified (principal); G93.40 Encephalopathy, unspecified; N35.919 Unspecified urethral stricture, male, unspecified site; Z85.51 Personal history of malignant neoplasm of bladder; F03.90 Unspecified dementia, unspecified severity, without behavioral disturbance, psychotic disturbance, mood disturbance, and anxiety; I10 Essential (primary) hypertension; R33.9 Retention of urine, unspecified; R41.0 Disorientation, unspecified; E87.6 Hypokalemia; D50.9 Iron deficiency anemia, unspecified
CPT/HCPCS: 71045; 80048; 80053; 81001; 82728; 82803; 83540; 83550; 83605; 84145; 85007; 85025; 85651; 86140; 87040; 87086; 87088; 87186; 97162; 97165; 99285; C9803; J0696; J1956; U0003; U0005

== ENCOUNTER → 2023-05-08 18:59 | Outpatient (CLI) | payer MEDICARE, SELFPAY ==
--- OUTSIDE RECORDS SUMMARY | 2023-05-08 19:01 | XMS_ITS | Continuity of Care Document ---
Author Name Unknown Organization [address] [place] [address] Address [address] [facility] [address] [place] [address] Phone Care Team Providers Care Public Policy Analyst Name Role Phone Alejo Daniels DPM Unavailable Unavailable Allergies, Adverse Reactions, Alerts Substance Reaction Status Criticality No Known Allergies Active No Inform ation Medications Medication Instructions Dosage Effective Dates (start - stop) Status Comments losartan 50 mg tablet - Acti ve donepezil 10 mg tablet - Act corina mupirocin 2 % topical ointment - Active tamsulosin 0.4 mg capsule - Active levofloxacin 500 mg tablet - Active losartan 100 mg tablet TAKE 1 TABLET BY MOUTH ON THURSDAY, THURSDAY AND THURSDAY FOR 90 DAYS - Active donepezil 5 mg tablet - Acti ve Procedures Procedure Date DEBRIDE NAIL 1-5 TRIM NAIL(S) TRIM SKIN LESION DEBRIDE NAIL 1-5 TRIM NAIL(S) TRIM SKIN LESION DEBRIDE NAIL 1-5 TRIM NAIL(S) TRIM SKIN LESION
== END ==
PROVIDERS: PCP Family Medicine; Visit Provider Family Medicine
DX: S81.801A Unspecified open wound, right lower leg, initial encounter (principal); B96.89 Other specified bacterial agents as the cause of diseases classified elsewhere
CPT/HCPCS: 87070; 87205

== ENCOUNTER → 2023-05-16 21:56 | Outpatient (CLI) | payer MEDICARE, SELFPAY ==
--- OUTSIDE RECORDS SUMMARY | 2023-05-16 22:01 | XMS_ITS | Continuity of Care Document ---
Author Name Unknown Organization [address] [place] [address] Address [address] [facility] [address] [place] [address] Phone Care Team Providers Care Cone Examiner Name Role Phone Alejo Daniels DPM Unavailable [...]
[2023-05-16 22:11] LABS: Microscopic, Urine URINE MICROSCOPIC (MICROSCOPIC)
[2023-05-16 22:14] LABS: Appearance,Urine CLEAR (Clear); Bilirubin,Urine Negative (Negative); Blood, Urine 3+ (Negative); Color,Urine YELLOW (Yellow); Glucose,Urine (UA) Negative (Negative); Ketones,Urine TRACE (Negative); Leukocyte Esterase,Urine TRACE (Negative); Nitrate,Urine Negative (Negative); Protein,Urine 1+ (Negative); Specific Gravity, Urine 1.025 (1.005-1.030); Urobilinogen,Urine 0.2 EU/dl (0.2)
[2023-05-16 22:30] LABS: Squamous Epithelial Cell,Urine Occasional #/hpf (0-5); WBC,Urine 20-50 #/hpf (0-3)
== END ==
PROVIDERS: PCP Family Medicine; Visit Provider Family Medicine
DX: N39.0 Urinary tract infection, site not specified (principal); R82.90 Unspecified abnormal findings in urine
CPT/HCPCS: 81001; 87086

== ENCOUNTER 2023-05-22 18:20 | Emergency (ER) | payer MEDICARE, SELFPAY ==
[2023-05-22 18:20] VITALS: BP 120/64; PULSE 66; RESP 19; TEMP 36.6; O2SAT 98; BMI 21.7
[2023-05-22 19:00] VITALS: BP 120/59; PULSE 60; O2SAT 95
--- NOTE | 2023-05-22 19:08 | CT_ITS ---
PROCEDURE INFORMATION: Exam: CT Cervical Spine Without Contrast Exam date and time: 05/22/2023 7:45 PM Age: 87 years old Clinical indication: Injury or trauma; Fall TECHNIQUE: Imaging protocol: Computed tomography of the cervical spine without contrast. Radiation optimization: All CT scans at this facility use at least one of these dose optimization techniques: automated exposure control; mA and/or kV adjustment per patient size (includes targeted exams where dose is matched to clinical indication); or iterative reconstruction. REPORTING DATA: Count of CT and Cardiac NM exams in prior 12 months: This patient has received 0 known CTs and 0 known cardiac nuclear medicine studies in the 12 months prior to the current study. COMPARISON: CT CERVICAL SPINE WO CON 11/13/2021 11:12 AM FINDINGS: Bones/joints: Vertebral body height and AP alignment is preserved. Moderate degenerative change about the dens. Mild to moderate prevertebral osteophytosis. There are bilateral facet joint degenerative changes. Multilevel disc space narrowing with degenerative endplate change. No acute cervical spine fracture. No definite significant central canal stenosis within limitations of technique. Multilevel cervical foraminal stenoses. Lungs: Scarring at the lung apices. Pleural spaces: No visible pneumothorax. Vasculature: Vascular calcification. Soft tissues: Unremarkable. IMPRESSION: No acute osseous abnormality.
--- NOTE | 2023-05-22 19:08 | CT_ITS ---
PROCEDURE INFORMATION: Exam: CT Head Without Contrast Exam date and time: 05/22/2023 7:43 PM Age: 87 years old Clinical indication: Injury or trauma; Fall TECHNIQUE: Imaging protocol: Computed tomography of the head without contrast. Radiation optimization: All CT scans at this facility use at least one of these dose optimization techniques: automated exposure control; mA and/or kV adjustment per patient size (includes targeted exams where dose is matched to clinical indication); or iterative reconstruction. REPORTING DATA: Count of CT and Cardiac NM exams in prior 12 months: This patient has received 0 known CTs and 0 known cardiac nuclear medicine studies in the 12 months prior to the current study. COMPARISON: MR HEAD/BRAIN WO CON 12/12/2021 2:28 PM FINDINGS: Brain: Age-related volume loss. Decreased attenuation of the supratentorial white matter is likely secondary to chronic microvascular ischemia. No acute intracranial hemorrhage, midline shift or intracranial mass effect. Mild curvilinear calcification of both parietal lobes, similar from prior study. Cerebral ventricles: Ventriculomegaly is commensurate for degree of volume loss. Paranasal sinuses: Visualized sinuses are unremarkable. No fluid levels. Mastoid air cells: Visualized mastoid air cells are well aerated. Bones/joints: Unremarkable. No acute fracture. Soft tissues: Unremarkable. IMPRESSION: No acute intracranial abnormality.
--- NOTE | 2023-05-22 19:09 | HMH.EDGENADL ---
Discharge Plan Disposition Patient Disposition: Home, Self-Care Prescriptions Prescriptions: No Action calcium carbonate [Tums] 200 mg calcium (500 mg) tablet,chewable 200 mg PO AC acetaminophen [Tylenol] 325 mg capsule 325 mg PO Q6HP PRN (Reason: Pain, Mild) cholecalciferol (vitamin D3) 1,000 unit capsule 1,000 unit PO DAILY vitamins A,C,N-alcs-cepqwy [PreserVision AREDS] 7,160-113-100 jdgr-ee-zfcx tablet 1 tab PO DAILY thiamine HCl (vitamin B1) 100 MG/ML solution 100 mg IM MONTHLY donepezil 10 mg tablet 10 mg PO DAILY aspirin 81 mg Tablet,Chewable 81 mg PO DAILY sennosides [senna] 8.6 mg Tablet 8.6 mg PO DAILYP PRN (Reason: Constipation) melatonin 5 mg Tablet 5 mg PO HS dextran 70-hypromellose (PF) 0.1-0.3 % Dropperette 1 drp OPHTHALMIC (EYE) QID levofloxacin 750 mg tablet 750 mg PO Q24H 6 Days Qty: 6 0RF ferrous gluconate 324 mg (37.5 mg iron) tablet 324 mg PO DAILY 30 Days Qty: 30 0RF Referrals Follow up/Referrals: Rosy Carroll MD [Primary Care Provider] - See instructions Activity Restrictions/Add. Instructions Additional Instructions/Restrictions: Please keep topical antibiotic ointment and nonadhesive dressing on the wound over the next week. [place] may be removed in 10 days. No abnormalities were found on the CT scan of the head or cervical spine please return with any worsening symptoms. Clinical Impressions Clinical Impression: Laceration of scalp, Minor head injury, Fall, Soft tissue avulsion Discharge ED Provider: Dank López General Adult HPI General Chief complaint: Fall Stated complaint: FALL WITH LACERATION Time Seen by Provider: 05/22/23 19:03 Mode of Arrival: EMS Source of Information: Patient, EMS and Medical Record Limitations: Altered Mental Status Description of Symptoms (Recalled from ER Triage Doc. by RN): Pt c/o headache and head lac from a fall from standing while walking. Pt reports to have gotten his feet tripped up and fell down and possible struck his head crispin nearby table or chair. Staff deny any LOC. Small bruise to left elbow. Pt able to move all 4 extremeties. 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 Denies any vision changes. He is baseline confused d/t dementia. He is A&O to person. History of Present Illness HPI narrative: Patient is an 87-year-old male here after a fall and a head injury and laceration. States he was walking with his walker and just lost balance and fell backwards hitting the posterior lateral aspect of his scalp. No loss of consciousness he is awake alert interactive at his baseline according to family. No blood thinners or anticoagulation. Does not have any significant neck pain he has low bit of pain over the right elbow and a small skin tear in that region. Related Data Home Medications Medication Instructions Recorded Confirmed acetaminophen 325 mg capsule 325 mg PO Q6HP PRN Pain, Mild 12/03/17 10/20/22 (Tylenol) calcium carbonate 200 mg calcium 200 mg PO AC Supplement 12/03/17 10/20/22 (500 mg) chewable tablet (Tums) cholecalciferol (vitamin D3) 25 1,000 unit PO DAILY Supplement 12/03/17 10/20/22 mcg (1,000 unit) capsule vitamins A,C,C-ftqx-tutxty 2,148 1 tab PO DAILY Supplement 12/03/17 10/20/22 mcg-113 mg-45 mg-17.4 mg tablet (PreserVision AREDS) thiamine HCl (vitamin B1) 100 100 mg IM MONTHLY Supplement 11/13/21 10/20/22 mg/mL injection solution aspirin 81 mg chewable tablet 81 mg PO DAILY HEART HEALTH 10/20/22 10/20/22 dextran 70-hypromellose (PF) 0.1 1 drp ophthalmic (eye) QID DRY EYES 10/20/22 10/20/22 %-0.3 % eye drops in a dropperette donepezil 10 mg tablet 10 mg PO DAILY Dementia 10/20/22 10/20/22 melatonin 5 mg tablet 5 mg PO HS SLEEP 10/20/22 10/20/22 sennosides 8.6 mg tablet (senna) 8.6 mg PO DAILYP PRN Constipation 10/20/22 10/20/22 Previous Rx's Medication Instructions Recorded ferrous gluconate 324 mg (37.5 mg 324 mg PO DAILY 30 days #30 tabs 10/20/22
--- NOTE | 2023-05-22 19:41 | PC.NURSE ---
Gone to CT
--- NOTE | 2023-05-22 19:46 | PC.NURSE ---
Back in room from CT
[2023-05-22 20:00] VITALS: BP 116/62; PULSE 63; O2SAT 94
--- NOTE | 2023-05-22 20:09 | PC.NURSE ---
C Collar removed per provider
[2023-05-22 20:30] VITALS: BP 166/62; PULSE 62; RESP 16; TEMP 36.6; O2SAT 97
== END 2023-05-22 20:37 | disposition home or self-care (01) ==
PROVIDERS: Emergency Provider Student in an Organized Health Care Education/Training Program; PCP Family Medicine
DX: S09.90XA Unspecified injury of head, initial encounter (principal); S01.01XA Laceration without foreign body of scalp, initial encounter; S51.001A Unspecified open wound of right elbow, initial encounter; I10 Essential (primary) hypertension; F03.90 Unspecified dementia, unspecified severity, without behavioral disturbance, psychotic disturbance, mood disturbance, and anxiety; W18.30XA Fall on same level, unspecified, initial encounter
CPT/HCPCS: 12002; 70450; 72125; 99285

== ENCOUNTER → 2023-05-26 20:11 | Outpatient (CLI) | payer MEDICARE, SELFPAY ==
[2023-05-26 21:35] LABS: Microscopic, Urine URINE MICROSCOPIC (MICROSCOPIC)
[2023-05-26 23:55] LABS: Appearance,Urine CLEAR (Clear); Bilirubin,Urine Negative (Negative); Blood, Urine Negative (Negative); Color,Urine YELLOW (Yellow); Glucose,Urine (UA) Negative (Negative); Ketones,Urine Negative (Negative); Leukocyte Esterase,Urine TRACE (Negative); Nitrate,Urine Negative (Negative); PH,Urine 5.5 (5.0-8.5); Protein,Urine Negative (Negative); Specific Gravity, Urine >= 1.030 (1.005-1.030); Urobilinogen,Urine 0.2 EU/dl (0.2)
[2023-05-27] LABS: Calcium Oxalate Crystals,Urine 3+ /lpf; Squamous Epithelial Cell,Urine Occasional #/hpf (0-5)
== END ==
PROVIDERS: PCP Family Medicine; Visit Provider Family Medicine
DX: N39.0 Urinary tract infection, site not specified (principal); B96.89 Other specified bacterial agents as the cause of diseases classified elsewhere
CPT/HCPCS: 81001; 87086

== ENCOUNTER 2023-08-11 11:39 | Outpatient (POV) | payer MEDICARE, SELFPAY ==
--- OUTSIDE RECORDS SUMMARY | 2023-08-11 11:41 | XMS_ITS | Continuity of Care Document ---
Author Name Unknown Organization [address] [place] [address] Address [address] [facility] [address] [place] [address] Phone Care Team Providers Care Wafer Substrate Tester Name Role Phone Alejo Daniels DPM Unavailable [...] SKIN LESION DEBRIDE NAIL 1-5 TRIM NAIL(S) DEBRIDE NAIL 1-5 TRIM NAIL(S) Advance Directives Directive Yes / No Effective Date File Name No Information Encounters Encounter Description Practice Location Reason(s) For Visit Diagnoses Date Provider Providers Copied on Encounter [facility], [address] [place] [address] [address], [place], [place], [id number], [place] tel:[phone] [facility] Tinea unguiumNail dystrophyOther specified peripheral vascular diseases Mar- 3 Jeremiah Murguia [address] [facility], [address], [place], [address], [place]. Referring Provider: Dequan Barrera. [address] [place] [address], [address] [place] [address] [address], [place], [place], [id number], [place] tel:[phone] [facility] Tinea unguiumCorns and callositiesNail dystrophyOther specified peripheral vascular diseases Dec- 3 Jeremiah Murguia [address] [facility], [address], [place], [address], [place]. Referring Provider: Dequan Barrera. [address] [place] [address], [address] [place] [address] [address], [place], [place], [id number], [place] tel:[phone] [facility] Tinea unguiumNail dystrophyOther specified peripheral vascular diseasesCorns and callosities Sep- 3 Jeremiah Murguia [address] [facility], [address], [place], [address], [place]. Referring Provider: Dequan Barrera. [address] [place] [address], [address] [place] [address], [place], [place], [id number], [place] tel:[phone] [facility] Tinea unguiumNail dystrophyOther specified peripheral vascular diseasesCorns and callosities Jun- 2 Jeremiah Murguia [address] [facility], [address], [place], [address], [place]. Referring Provider: Dequan Barrera. [facility], [address] [place] [address] [address], [place], [place], [id number], [place] tel:[phone] [facility] Tinea unguiumOther specified peripheral vascular diseasesNail dystrophy Mar- 2 Jeremiah Murguia [address] [facility], [address], [place], [address], [place]. Referring Provider: Dequan Barrera. Family History Family Member Type Diagnosis Age At Onset No Information Payers Payer name Insurance type Covered republican ID Luis cheek(s) Medicare [place] MB [id number] [facility] [id number] Social History Type Description Quantity Date Captured Comments Alcohol Use Details Unknown Caffeine Use Details Unknown Tobacco Use Status No Information Smoking Status No Information Sex Male Chief Complaint And Reason For Visit No Information Reason For Referral Reason For Referral No Information History Of Present Illness Encounter Date Complaint History Of Prese nt Illness No Information Functional Status Date Functional Assessmen t No Information Instructions Date Instruction Additional Infor mation Toenails 1 b/l were debrided in length and thickness without incident. Follow up in 2-3 months. 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 Related to Nail dystrophy All dystrophic nails were debrided in length and thickness as needed to prevent pain and other symptoms. Related to Nail dystrophy All of the calluses were debrided/pared to prevent further tissue breakdown and pain. Related to Corns and callosities Toenails 1 b/l were debrided in length and thickness without incident. Follow up in 2-3 months. Related to Tinea unguium All of the calluses were debrided/pared to prevent further tissue breakdown and pain. Related to Corns and callosities Toenails 1 b/l were debrided in length and thickness without incident. Follow up in 2-3 months. 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 Related to Nail dystrophy All of the calluses were debrided/pared to prevent further tissue breakdown and pain. Related to Corns and callosities Toenails 1 b/l were debrided in length and thickness without incident. Follow up in 2-3 months. 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 Related to Nail dystrophy All dystrophic nails were debrided in length and thickness as needed to prevent pain and other symptoms. Related to Nail dystrophy Toenails 1 b/l were debrided in length and thickness without incident. Follow up in 2-3 months. Related to Tinea unguium Assessments Type Assessment Date assessment Tinea unguium assessment Nail dystrophy assessment Other specified peripheral vascu lar diseases Patient Care Teams Name Effective Dates (start - stop) Status Members No Information
== END 2023-08-11 23:59 | disposition home or self-care (01) ==
LOC: SC 11:39
PROVIDERS: PCP Family Medicine; Visit Provider Dermatology
DX: Z00.00 Encounter for general adult medical examination without abnormal findings (principal)

== ENCOUNTER 2023-09-22 13:11 | Outpatient (POV) | payer MEDICARE, SELFPAY | END 2023-09-22 23:59 | disposition home or self-care (01) | LOC: SC 13:11 | PROVIDERS: PCP Family Medicine; Visit Provider Dermatology | DX: Z00.00 Encounter for general adult medical examination without abnormal findings (principal) ==

== ENCOUNTER 2025-02-22 12:22 | Inpatient (IN) | payer MEDICARE, SELFPAY ==
--- OUTSIDE RECORDS SUMMARY | 2025-01-18 20:00 | XMS_ITS | Continuity of Care Document ---
Author Organization [address] [place] [address] [address] [facility] [address] [place] [address] Phone Care Team Providers Care Rpg Programmer Name Role Phone Jeffrey Baxter NP Unavailable Unavailable Allergies, Adverse Reactions, Alerts Substance Reaction Status Criticality No Known Allergies Active No Inform ation Medications Medication Instructions Dosage Effective Dates (start - stop) Status Comments ciprofloxacin 500 mg tablet - Active cefuroxime axetil 500 mg tablet - Active Nyamyc 100,000 unit/gram topical powder - Active sulfamethoxazole 800 mg-trimethoprim 160 mg tablet - Active losartan 50 mg tablet - Acti ve donepezil 10 mg tablet - Act corina mupirocin 2 % topical ointment - Active tamsulosin 0.4 mg capsule - Active levofloxacin 500 mg tablet - Active losartan 100 mg tablet TAKE 1 TABLET BY MOUTH ON THURSDAY, THURSDAY AND THURSDAY FOR 90 DAYS - Active donepezil 5 mg tablet - Acti ve Procedures Procedure Date Dystrophic nail(s), trim any number Trim Dystrophic nail(s) Trim Dystrophic nail(s) DEBRIDE NAIL 1-5 Debride mycotic, thick nails 1-5 2024 Trim dystrophic nail(s) in length, any n umber DEBRIDE NAIL 1-5 Trim nail(s) PARING/CUTG B9 HYPRKER LES 1 DEBRIDE NAIL 1-5 Trim nail(s) PARING/CUTG B9 HYPRKER LES 1 DEBRIDE NAIL 1-5 Trim nail(s) DEBRIDE NAIL 1-5 TRIM NAIL(S) DEBRIDE NAIL 1-5 TRIM NAIL(S) TRIM SKIN LESION DEBRIDE NAIL 1-5 TRIM NAIL(S) TRIM SKIN LESION DEBRIDE NAIL 1-5 TRIM NAIL(S) TRIM SKIN LESION DEBRIDE NAIL 1-5 TRIM NAIL(S) DEBRIDE NAIL 1-5 TRIM NAIL(S) Advance Directives Directive Yes / No Effective Date File Name No Information Encounters Encounter Description Practice Location Reason(s) For Visit Diagnoses Date Provider Providers Copied on Encounter [address] [place] [address], [address] [place] [address], [id number], tel:[phone] [facility] Nail dystrophyOnycho gryphosisOther specified peripheral vascular diseases 5 [place], [place]. [address] [place] [address], [address] [place] [address], [id number], tel:[phone] [facility] Other specified peripheral vascular diseasesOnychog ryphosisNail dystrophy 5 [place], [place]. [address] [place] [address], [address] [place] [address], [id number], tel:[phone] [facility] No Information 5 [place], [place]. [facility], [address] [facility] [address], [place], [place], [id number], [place] tel:[phone] [facility] Other specified peripheral vascular diseasesNail dystrophyOnycho gryphosis 5 [place], [place]. [facility], [address] [facility] [address], [place], [place], [id number], [place] tel:[phone] [facility] Tinea unguiumNail dystrophyOther specified peripheral vascular diseases 4 Jeremiah Murguia [address] [facility], [address], [place], [address], [place]. Referring Provider: Dequan Barrera. [facility], [address] [place] [address] [address], [place], [place], [id number], [place] tel:[phone] [facility] Tinea unguiumNail dystrophyCorns and callositiesOthe r specified peripheral vascular diseases [address] [place] [address], [address], [place], [address], [place]. Referring Provider: Dequan Barrera. [facility], [address] [place] [address], [place], [place], [id number], [place] tel:[phone] [facility] Tinea unguiumNail dystrophyCorns and callositiesOthe r specified peripheral vascular diseases 4 Jeremiah Murguia [address] [facility], [address], [place], [address], [place]. Referring Provider: Dequan Barrera. [facility], [address] [place] [address] [address], [place], [place], [id number], [place] tel:[phone] [facility] No Information 4 Jeermiah Murguia [address] [facility], [address], [place], [address], [place]. [facility], [address] [place], [place] [address] [address], [place], [place], [id number], [place] tel:[phone] [facility] Nail dystrophyTinea unguiumOther specified peripheral vascular diseases 4 Jeremiah Murguia [address] [facility], [address], [place], [address], [place]. Referring Provider: Dequan Barrera. [facility], [address] [place] [address] [address], [place], [place], [id number], [place] tel:[phone] [facility] Tinea unguiumNail dystrophyOther specified peripheral vascular diseases 3 Jeremiah Murguia [address] [facility], [address], [place], [address], [place]. Referring Provider: Dequan Barrera. [facility], [address] [place] [address] [address], [place], [place], [id number], [place] tel:[phone] [facility] Tinea unguiumCorns and callositiesNail dystrophyOther specified peripheral vascular diseases 3 Jeremiah Murguia [address] [facility], [address], [place], [address], [place]. Referring Provider: Dequan Barrera. [facility], [address] [place], [place] [address], [place], [place], [id number], [place] tel:[phone] [facility] Tinea unguiumNail dystrophyOther specified peripheral vascular diseasesCorns and callosities 3 Jeremiah Murguia [address] [facility], [address], [place], [address], [place]. Referring Provider: Dequan Barrera. [facility], [address] [place] [address] [address], [place], [place], [id number], [place] tel:[phone] [facility] Tinea unguiumNail dystrophyOther specified peripheral vascular diseasesCorns and callosities Jun- 2 Jeremiah Murguia [address] [facility], [address], [place], [address], [place]. Referring Provider: Dequan Barrera. [facility], [address] [facility] [address], [place], [place], [id number], [place] tel:[phone] [facility] Tinea unguiumOther specified peripheral vascular diseasesNail dystrophy Mar- 2 Jeremiah Murguia [address] [facility], [address], [place], [address], . Referring Provider: Dequan Barrera. Family History Family Member Type Diagnosis Age At Onset No Information Payers Payer name Insurance type Covered alliance party ID Authoriza tikhari(s) Medicare [place] JENNIFER [id number] AARP CI [id number] Social History Type Description Quantity Date Captured [...] Information Instructions Date Instruction Additional Infor mation All of the documente d thickened nails (which includes those nails 2 mm or more in thickness, and possible mycotic component to the nails) were debrided in both length and thickness using both a nail nipper and an electric rotary machine grinder in an atraumatic fashion as needed ; this was performed in an attempt to prevent pain and reduce risk of infection. Alcohol applied to the digits afterwards. PT tolerated procedure well. Related to Onychogryphosis Discussed using comp ression stockings to assist in localize swelling and venous return, and the assistant terminal manager benefits of using compression stockings. Reinforced the importance of proper adherence to using the albertina hose, and compression stockings. Will continue to monitor. Related to Other specified peripheral vascular diseases All documented dystr ophic nails were reduced in length as needed to prevent pain and other symptoms. Patient tolerated procedure well. Related to Nail dystrophy All documented dystr ophic nails were reduced in length as needed to prevent pain and other symptoms. Related to Nail dystrophy All of the documente d thickened nails (which includes those nails 2 mm or more in thickness, and possible mycotic component to the nails) were debrided in both length and thickness using both a nail nipper and an electric rotary machine grinder in an atraumatic fashion; this was performed in an attempt to prevent pain and reduce risk of infection. Alcohol applied to the digits afterwards. Related to Onychogryphosis Discussed using comp ression stockings to assist in localize swelling and venous return, and the longterm benefits of using compression stockings. Reinforced the importance of proper adherence to using the albertina hose, and compression stockings. Will continue to monitor. Related to Other specified peripheral vascular diseases Discussed using comp ression stockings to assist in localize swelling and venous return, and the longterm benefits of using compression stockings. Reinforced the importance of proper adherence to using the albertina hose, and compression stockings. Will continue to monitor. Related to Other specified peripheral vascular diseases All documented dystr ophic nails were reduced in length as needed to prevent pain and other symptoms. Related to Nail dystrophy All documented thick ened nails were debrided using a rotary tool and nail nipper. Related to Onychogryphosis Toenails 1 b/l were debrided in length and thickness without incident. Follow up in 2-3 months. 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 Related to Nail dystrophy All of the calluses were debrided/pared to prevent further tissue breakdown and pain. Related to Corns and callosities All dystrophic nails were debrided in length and thickness as needed to prevent pain and other symptoms. Related to Nail dystrophy Toenails 1 b/l were debrided in length and thickness without incident. Follow up in 2-3 months. Related to Tinea unguium Toenails 1 b/l were debrided in length and thickness without incident. Follow up in 2-3 months. 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 Related to Nail dystrophy All of the calluses were debrided/pared to prevent further tissue breakdown and pain. Related to Corns and callosities All dystrophic nails were debrided in length [...] and pain. Related to Corns and callosities All dystrophic nails were debrided in length and thickness as needed to prevent pain and other symptoms. Related to Nail dystrophy Toenails 1 b/l were debrided in length and thickness without incident. Follow up in 2-3 months. Related to Tinea unguium Assessments Type Assessment Date assessment Nail dystrophy assessment Onychogryphosis assessment Other specified peripheral vascu lar diseases Patient Care Teams Name Effective Dates (start - stop) Status Members No Information
[2025-02-22] VITALS (32 sets, daily range): BP systolic 79–143; BP diastolic 24–86; PULSE 72–118; RESP 18–42; TEMP 36.1–37.1; O2SAT 85–96; BMI 26.9
--- NOTE | 2025-02-22 12:26 | PC.NURSE ---
Stroke Alert called at [phone]
--- NOTE | 2025-02-22 12:27 | ECG_ITS ---
APPROVED REPORT Exam: Resting ECG HR:91 bpm ECG Measurements Heart Rate 91 AXES QRSd 102 QRS -29 QT 326 T 82 QTc 375 Conclusion SUPRAVENTRICULAR RHYTHM BORDERLINE LEFT AXIS DEVIATION [QRS AXIS < -20] LEFT VENTRICULAR HYPERTROPHY AND ST-T CHANGE [VOLTAGE CRITERIA PLUS ST/T ABNORMALITY] ST DEPRESSION, CONSIDER SUBENDOCARDIAL INJURY [0.1+ mV ST DEPRESSION] Electronically signed by : DONALD FONTANA, 02/22/2025 15:25:37
--- NOTE | 2025-02-22 12:27 | CT_ITS ---
FINAL REPORT TECHNIQUE: Axial imaging of the chest is obtained after the administration of contrast. 3-D MIP reformatted images were also obtained and reviewed per PE protocol. CLINICAL HISTORY: found down, hypotens/hypoxic, AMS FINDINGS: The pulmonary arteries are well filled. There is no evidence of pulmonary embolus. There is no aortic dissection. Heart size is mildly enlarged. There is a right paratracheal lymph node measuring 23 mm. No hilar lymphadenopathy is identified. There is bilateral lower lobe atelectasis. There is a 5 mm right middle lobe nodule well-seen on image 75 of series 5. The lungs are otherwise clear. There are small bilateral pleural effusions. No pericardial effusion is identified. The esophagus is dilated. Fluid is seen in the esophagus above the level of the velasquez. There is a mild compression deformity of the mid thoracic vertebral body which is age-indeterminate. IMPRESSION: No evidence of pulmonary embolism or aortic dissection. Mild compression deformity of the mid thoracic vertebral body, age-indeterminate. Cardiomegaly with bilateral effusions, may represent early CHF. Dilated fluid-filled esophagus increasing the risk of aspiration. Reviewed, Interpreted and Dictated by Velasquez Menon MD Transcribed by Harriett Jordan Authenticated and . [facility]
--- NOTE | 2025-02-22 12:27 | CT_ITS ---
FINAL REPORT TECHNIQUE: Thin section axial images were obtained through the cervical spine without contrast. Multiplanar reconstruction images were obtained from the axial data. Exam was performed using dose reduction techniques. CLINICAL HISTORY: found down, hypotens/hypoxic, AMS COMPARISON: 05/22/2023 FINDINGS: There is no acute fracture or acute malalignment of the cervical spine. There is multilevel degenerative disc disease, unchanged from prior. There is no evidence of unilateral or bilateral facet lock. Vertebral body height is preserved. No acute paraspinal abnormality is identified. IMPRESSION: No acute osseous abnormality of the cervical spine. Stable multilevel degenerative disc disease. Reviewed, Interpreted and Dictated by Clara Menon MD Transcribed by Harriett Jordan Authenticated and [facility]
--- NOTE | 2025-02-22 12:27 | CT_ITS ---
FINAL REPORT TECHNIQUE: Thin section axial images are obtained through the brain after intravenous contrast injection. Multiplanar reconstructions were obtained from the axial data. Exam was performed using dose reduction techniques such as automated exposure control, adjustment of the mA and kV according to patient size, and use of iterative reconstruction technique. CLINICAL HISTORY: possible stroke FINDINGS: The intracerebral portions of the carotid arteries are patent. The anterior and middle cerebral arteries are patent. The posterior cerebral arteries arise from the basilar artery. They are patent. [place] is intact. The basilar artery is patent. The vertebral arteries are patent. There is no significant stenosis, aneurysm, or AVM. IMPRESSION: Unremarkable CT angiogram of the intracerebral vasculature. Reviewed, Interpreted and Dictated by Clara Menon MD Transcribed by Harriett Jordan Authenticated and . [facility]
--- NOTE | 2025-02-22 12:27 | CT_ITS ---
FINAL REPORT TECHNIQUE: Thin section axial images were obtained through the abdomen after intravenous contrast. Reconstruction images were obtained from the axial data. Exam was performed using dose reduction techniques. CLINICAL HISTORY: found down, hypotens/hypoxic, AMS FINDINGS: There is a small hypodense lesion in the liver, likely a small hepatic cyst. The spleen, right adrenal, and pancreas are without acute abnormality. 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 There is a left adrenal nodule measuring 17 mm which is not an adenoma by strict criteria. The kidneys are unremarkable. As described on the prior CT, there is fluid in a distal esophagus and stomach. There is no evidence of small bowel obstruction. There is mild wall thickening of multiple small bowel loops which are nonspecific. There is no abdominal lymphadenopathy or ascites. There is long segment colonic wall thickening with surrounding inflammation, likely related to diffuse colitis. 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 The urinary bladder wall is thickened with multiple bladder diverticula. There is no pelvic lymphadenopathy or ascites. No acute osseous abnormalities identified. IMPRESSION: Diffuse colitis, favor infectious or inflammatory. Fluid in the distal esophagus most consistent with reflux. Urinary bladder wall thickening with multiple bladder diverticula, likely related to chronic outlet obstruction. Reviewed, Interpreted and Dictated by Clara Menon MD Transcribed by Harriett Jordan Authenticated and [facility]
--- NOTE | 2025-02-22 12:27 | CT_ITS ---
FINAL REPORT TECHNIQUE: Thin section axial images were obtained from skull base to vertex without contrast. Coronal reconstruction images were obtained from the axial data. Exam was performed using dose reduction techniques such as automated exposure control, adjustment of the mA and kV according to patient size, and use of iterative reconstruction technique. CLINICAL HISTORY: possible stroke COMPARISON: 05/22/2023 FINDINGS: There is atrophy. No mass effect or midline shift. No intracranial hemorrhage. No hydrocephalus. Periventricular low density is likely related to changes of chronic small vessel ischemia. The basilar cisterns are preserved. The posterior fossa is without acute abnormality. The soft tissues are without acute abnormality. No acute osseous abnormality is identified. IMPRESSION: No acute intracranial abnormality. Atrophy and changes suggesting chronic small vessel ischemia. Reviewed, Interpreted and Dictated by Clara Menon MD Transcribed by Harriett Jordan Authenticated and [facility]
--- NOTE | 2025-02-22 12:27 | CT_ITS ---
FINAL REPORT CLINICAL HISTORY: possible stroke FINDINGS: CT NECK ANGIO, WITHOUT AND WITH CONTRAST TECHNIQUE: Thin section axial CT with contrast with multiplanar 3D MIP reconstruction. This study was performed with techniques to keep radiation doses as low as reasonably achievable, (ALARA). Individualized dose reduction techniques using automated exposure control or adjustment of mA and/or kV according to the patient''s size were employed. NASCET criteria and technique was utilized during interpretation. Aortic arch: Arch shows no significant narrowing. Great vessel origins are widely patent. Right carotid: There is calcification within the proximal ICA with 50% stenosis. The remaining internal carotid artery is patent to the skull. Left carotid: There is calcification of the proximal ICA without significant stenosis. Vertebrals: The vertebral arteries are patent bilaterally. No significant stenosis is present. IMPRESSION: 50% stenosis of the proximal right ICA. No stenosis on the left. Reviewed, Interpreted and Dictated by Clara Menon MD Transcribed by Harriett Jordan Authenticated and [facility]
--- NOTE | 2025-02-22 12:29 | PC.NURSE ---
FSBS 119, RN Notified
--- OUTSIDE RECORDS SUMMARY | 2025-02-22 12:30 | XMS_ITS | Clinical Summary ---
Author Organization [facility] Address [address] [place] [address] Care Team Providers Care Retreader Name Role Phone Unavailable Primary Care Provider Unavailabl e Social History Tobacco Use Types Packs/Day Years Used Date Smoking Tobacco: Never Assessed Sex and Gender Information Value Date Recorded Sex Assigned at Not on file Legal Sex Male 7:19 PM EST Gender Identity Not on file Sexual Orientation Not on file Plan of Treatment Health Maintenance Due Date Last Done Comments Tdap/Td Vaccine >11 yo (1 - Tdap) 11/04/1954 Pneumococcal Vaccines >50 yo (1 of 1 - PCV) 11/04/1985 Shingles (Shingrix) (1 of 2) 11/04/1985 Annual SDOH Screening 07/27/2024 Influenza Vaccine (#1) 2025 Haemophilus Influenzae Type B (Hib) Vaccine Aged Out No longer eligible b ased on patient's age to complete this topic Hepatitis A (HepA) Vaccine Aged Out N o longer eligible based on patient's age to complete this topic Hepatitis B (HepB) Vaccine Aged Out N o longer eligible based on patient's age to complete this topic Meningococcal ACWY Aged Out No longer eligible based on patient's age to complete this topic Polio (IPV) Aged Out No longer eligi ble based on patient's age to complete this topic Rotavirus (RV) Vaccine Aged Out No lo nger eligible based on patient's age to complete this topic
[2025-02-22] MEDS: IOPAMIDOL-370 (76%);100ML BOTTLE 80 ML IV ×2 (12:39→12:48)
[2025-02-22] MEDS: SODIUM CHLORIDE 0.9% 10ML SYR (RAD ONLY) 10 ML IV ×2 (12:39→12:48)
[2025-02-22] MEDS: 0.9 % SODIUM CHLORIDE 50 ML VIAL IV ×2 (12:39→12:48)
--- NOTE | 2025-02-22 12:41 | ED_ITS ---
Discharge Plan Disposition Patient Disposition: Admitted Condition: Critical Clinical Impressions Clinical Impression: Shock, Pleural effusion, AMS (altered mental status), Colitis, ST segment depression Discharge ED Provider: Hermelinda Fletcher General Adult HPI General Chief complaint: Altered Mental Status Stated complaint: Poss CVA Time Seen by Provider: 02/22/25 12:30 History of Present Illness HPI narrative: This patient is an 89-year-old male with a history of prostate and bladder cancer, dementia, hypertension presenting to the emergency department for evaluation with concern for altered mental status. According to EMS, they were called to the nursing facility for altered mental status and possible stroke with a last known well of around 10:00 this morning. They note that the patient lives in the assisted living side of [place] and had gone to breakfast this morning, walking himself there and eating without issue. Staff reportedly went to his room to pass meds just prior to arrival and found him unresponsive. EMS notes that and upon their initial arrival, he was hypoxic, hypotensive, and tachycardic. They note that they put him on 15 L nonrebreather with an O2 saturation of only 85%. They states that he was completely unresponsive and was blowing bubbles. They present a signed DNR/DNI. Nursing staff here called family ( and children) to let them know that patient was coming in critically ill and verified DNR/DNI status. Upon arrival, patient is critically ill and does not contribute to history Related Data Home Medications ?Medication ?Instructions ?Recorded ?Confirmed acetaminophen 325 mg capsule 325 mg PO Q6HP PRN Pain, Mild 12/03/17 10/20/22 (Tylenol) calcium carbonate (Tums) 200 mg PO AC Supplement 11/2410/20/22 cholecalciferol (vitamin D3) 25 1,000 unit PO DAILY Geller pplement 12/03/17 10/20/22 mcg (1,000 unit) capsule vitamins A,C,W-[id number]-[id number] 2,148 1 tab PO DAILY Supple ment 12/03/17 10/20/22 mcg-113 mg-45 mg-17.4 mg tablet (PreserVision AREDS) thiamine HCl (vitamin B1) 100 100 mg IM MONTHLY Supple ment 11/13/21 10/20/22 mg/mL injection solution aspirin 81 mg chewable tablet 81 mg PO DAILY HEART HEA LTH 10/20/22 10/20/22 dextran 70-hypromellose (PF) 0.1 1 drp ophthalmic (eye ) QID DRY EYES 10/20/22 10/20/22 %-0.3 % eye drops in a dropperette donepezil 10 mg tablet 10 mg PO DAILY Dementia 09/2510/20/22 melatonin 5 mg tablet 5 mg PO HS SLEEP 10/20/22 sennosides 8.6 mg tablet (senna) 8.6 mg PO DAILYP PRN Constipation 10/20/22 10/20/22 Previous Rx's ?Medication ?Instructions ?Recorded ferrous gluconate 324 mg (37.5 mg 324 mg PO DAILY 30 d ays #30 tabs 10/20/22 iron) tablet levofloxacin 750 mg tablet 750 mg PO Q24H 6 days #6 ta bs 10/20/22 Allergies Allergy/AdvReac Type Severity Reaction Status Date / Time No Known Allergies Allergy Verified 03/24/22 15:12 [facility] Disclaimer: The information contained in this section may have been updated after the patient was seen, as this information can be updated by other users. Medical History Normal colonoscopy Hypertension Dementia Cancer Surgical History History of cancer surgery Social History Smoking Status: Unknown if ever smoked alcohol intake: current alcohol intake frequency: holidays/special occasions only substance use type: denies use current occupational status: employed and retired Travel in the last 8 weeks?: None household members: spouse and family housing: jail Have you lived/traveled outside US in past 30 days?: No Contact w/someone who lives/traveled outside US past 30 days?: No Exposure to someone with infectious disease in past 14 days?: No Do you have a fever (greater than 100.4 F or 38 C)?: No Have you tested positive for COVID-19?: No Exposed to someone with COVID-19 in past 14 days?: No Do you have a sore throat?: No Do you have a cough?: No Do you have any weakness?: No Do you have any diarrhea?: No Are you experiencing any unusual bleeding?: No Do you have any muscle aches/pain?: No Do you have any abdominal pain?: No Are you experiencing loss of taste or smell?: No Other Medical History Have you received the Flu Vaccine for this season: No Have you received the Pneumonia Vaccine: No ROS Obtained: Yes All systems reviewed & no additional complaints except as documented Physical Exam General General appearance: lethargic Comment: Very ill-appearing Head Head exam: atraumatic and normocephalic Eye Eye exam: Present normal appearance, PERRL and EOMI ENT ENT exam: Present normal exam, normal oropharynx, mucous membranes moist and normal external ear exam Neck Neck exam: Present normal inspection, full ROM and trachea midline; Absent tenderness Chest Chest inspection: Present normal inspection and symmetric chest wall rise; Absent tenderness Respiratory Respiratory exam: Present normal lung sounds bilaterally; Absent respiratory distress, wheezes, stridor or accessory muscle use Cardiovascular Cardiovascular exam: Present normal rhythm and tachycardia Abdominal Exam Abdominal exam: Present distention; Absent tenderness, guarding or rebound Extremities Exam Extremities exam: Present full ROM, normal capillary refill and edema (Bilateral lower extremity edema); Absent tenderness Back Exam Back exam: Present normal inspection; Absent tenderness Neurological Exam Neurological exam: Absent alert or oriented X3 Expanded Neurological Exam Coma scale eye opening: To voice Coma scale motor response: Obeys commands Coma scale verbal response: Incomprehensible Coma scale total: 11 Comment: Very generally weak with difficulty verbally responding, however he does follow commands. He is weak in all 4 extremities without anything focal on one side versus the other Skin Skin exam: Present warm and dry Medical Decision Making Medical Records Medical records reviewed: Yes I reviewed the patient's medical records. Screening: Per USPSTF and CDC recommendations, given the prevalence of disease in our region, it is our hospital?s policy to screen for HIV and viral Hepatitis for all patients aged 18 and over and those with ongoing risk factors. Zeke Inquiry Pt receiving controlled substance: No Vital Signs: 02/22/25 12:39 02/22/25 12:39 02/22/25 12:39 Temperature 98.8 F 98.8 F Temperature Source Oral Pulse Rate 93 H Pulse Rate [Right] 93 H Respiratory Rate 32 H 32 H Blood Pressure 79/36 L Blood Pressure [Right Arm] 79/36 L Blood Pressure Mean Blood Pressure Mean [Right Arm] 50 02 Sat by Pulse Oximetry 94 L 94 L 85 L Oxygen Delivery Method Nasal Cannula Nasal Cannula Non-Rebreather Oxygen Flow Rate (LPM) 6 4 15 02/22/25 13:04 02/22/25 13:10 02/22/25 13:25 Temperature Temperature Source Pulse Rate 92 H 78 93 H Pulse Rate [Right] Respiratory Rate 39 H 40 H 40 H Blood Pressure 95/36 L 92/46 L 97/24 L Blood Pressure [Right Arm] Blood Pressure Mean 45 67 48 Blood Pressure Mean [Right Arm] 02 Sat by Pulse Oximetry 93 L 95 93 L Oxygen Delivery Method Nasal Cannula Nasal Cannula Nasal Cannula Oxygen Flow Rate (LPM) 6 6 6 02/22/25 13:31 02/22/25 14:35 Temperature 98.1 F Temperature Source Pulse Rate 94 H 85 Pulse Rate [Right] Respiratory Rate 42 H 24 Blood Pressure 113/51 L 111/86 Blood Pressure [Right Arm] Blood Pressure Mean 63 Blood Pressure Mean [Right Arm] 02 Sat by Pulse Oximetry 93 L Oxygen Delivery Method Nasal Cannula Nasal Cannula Oxygen Flow Rate (LPM) 6 6 Lab Data Lab results reviewed: Yes I reviewed the patient's lab results. Lab Results 02/22/25 12:29: VBG pH 7.45 H, VBG pCO2 26.5 L, VBG pO2 181.5 H, VBG HCO3 17.8 L , VBG Total CO2 18.7 L, VBG O2 Saturation 99.5 H, VBG Base Excess -6.2 L, VBG Lactic Acid 7.4 H 02/22/25 13:00: WBC 3.4 L, RBC 2.66 L, Hgb 8.1 L, Hct 24.5 L, MCV 92.1, MCH 30.5, MCHC 33.1, RDW 14.5, Plt Count 161, MPV 9.7, Neut % (Auto) 94.7 H, Lymph % (Auto) 4.1 L, [place] % (Auto) 0.3 L, Eos % (Auto) 0.0 L, Baso % (Auto) 0.3, Neut # (Auto) 3.2, Lymph # (Auto) 0.1 L, [place] # (Auto) 0.0 L, Eos # (Auto) 0.0, Baso # (Auto) 0.0, NT-Pro-B Natriuret Pep 3200 H, Lipase 64, Plasma/Serum Alcohol < 10 02/22/25 13:00 Orders (Tests/Meds): ED MEDICATIONS Generic Name Dose Route Start Last Admin Trade Name Mckinley PRN Reason Stop Dose Admin Diazepam 5 mg 02/22/25 13:28 Diazepam 5mg Tablet PO 02/23/25 01:28 ONCE PRN Anxiety Fentanyl Citrate 50 mcg 02/22/25 13:28 Fentanyl 100mcg/2ml Vial IV 02/23/25 01:28 Q3MINP PRN Sedation Fentanyl Citrate 25 mcg 02/22/25 13:28 Fentanyl 100mcg/2ml Vial IV 02/23/25 01:28 Q3MINP PRN Sedation Flumazenil 0.2 mg 02/22/25 13:28 Flumazenil 0.1mg/Ml 5ml Vial IV 02/23/25 01:28 NEEDED PRN Sedation Heparin Sodium (Porcine) 5,000 unit 02/22/25 13:28 02/22/25 14:38 Heparin 1,000 Units/Ml 10ml Vial (Drug Enforcement Agent) IV 02/22/25 17:28 5,000 unit NEEDED PRN Administration Emergency Box [facility] [place] Hydralazine HCl 20 mg 02/22/25 13:28 Hydralazine 20mg/Ml Vial IV 02/22/25 17:28 ONCE PRN sbp>160 Norepinephrine/Dextrose 8 mg in 250 mls @ 15 mls/hr 02/22/25 12:59 Levophed 8mg/250ml-D5w Premix IV 03/24/25 12:58 .[id number] MARCOS Protocol 8 MCG/MIN Vancomycin/PEG/NADA/Lysine/Water 1.25 gm in 250 mls @ 125 mls/hr 02/22/25 13:15 Vancomycin 1.25gm/250ml (Peg) Premix IV 02/22/25 15:14 ONCE ONE Adenosine 180 mg/ Sodium 90 mls @ 409.05 mls/hr 02/22/25 13:28 Chloride IV 02/22/25 17:28 ONCE PRN fractional flow reserve 180 MCG/KG/MIN Adenosine 90 mg/ Sodium 90 mls @ 818.1 mls/hr 02/22/25 13:28 Chloride IV 02/22/25 17:28 ONCE PRN fractional flow reserve 180 MCG/KG/MIN Sodium Chloride 1,000 mls @ 25 mls/hr 02/22/25 13:30 02/22/25 14:38 Sod Chloride 0.9% 500ml Bag IV 02/23/25 13:28 25 mls/hr .Q25H MARCOS Administration Labetalol HCl 20 mg 02/22/25 13:28 Labetalol 20mg/4ml Syringe IV 02/22/25 17:28 ONCE PRN sbp>160 Lorazepam 1 mg 02/22/25 13:28 Lorazepam 2mg/Ml Vial IV 02/23/25 01:28 ONCE PRN Anxiety Midazolam HCl 1 mg 02/22/25 13:28 Midazolam 2mg/2ml Vial IV 02/23/25 01:28 Q3MINP PRN Sedation Midazolam HCl 1 mg 02/22/25 13:28 Midazolam Hcl 1mg/Ml 5ml Vial IV 02/23/25 01:28 Q3MINP PRN Sedation Naloxone HCl 0.4 mg 02/22/25 13:28 Naloxone 0.4mg/Ml Vial IV 02/23/25 01:28 Q5MINP PRN Decreased Respirations Nitroglycerin 800 mcg 02/22/25 13:28 02/22/25 14:38 Nitroglycerin 800mcg/8ml Syr (Drug Enforcement Agent) IA 02/22/25 17:28 800 mcg NEEDED PRN Administration Emergency Box [facility] [place] Ondansetron HCl 4 mg 02/22/25 13:28 Ondansetron 4mg/2ml Vial IV 02/23/25 01:28 NEEDED PRN Nausea Promethazine HCl 25 mg 02/22/25 13:28 Promethazine Hcl 25mg/Ml 1ml Vial IV 02/23/25 01:28 NEEDED PRN Nausea And Vomiting Protamine Sulfate 50 mg 02/22/25 13:28 Protamine Sulfate 50mg/5ml Vial (Drug Enforcement Agent) IV 02/22/25 17:28 ONCE PRN act>200 Sodium Chloride 10 ml 02/22/25 12:27 Sodium Chloride 0.9% 10ml Flush Syringe IV 03/24/25 12:26 NEEDED PRN Maintain IV Site Sodium Chloride 10 ml 02/22/25 12:38 02/22/25 12:39 Sodium Chloride 0.9% 10ml Syr (Rad Only) IV 03/24/25 12:37 10 ml NEEDED PRN Administration Maintain IV Site Sodium Chloride 10 ml 02/22/25 12:47 02/22/25 12:48 Sodium Chloride 0.9% 10ml Syr (Rad Only) IV 03/24/25 12:46 10 ml NEEDED PRN Administration Maintain IV Site Sodium Chloride 10 ml 02/22/25 13:28 Sodium Chloride 0.9% 10ml Vial IV 03/24/25 13:27 NEEDED PRN to Dilute Lorazepam inj Discontinued Medications Generic Name Dose Route Start Last Admin Trade Name Mckinley PRN Reason Stop Dose Admin Aspirin 300 mg 02/22/25 13:13 02/22/25 13:19 Aspirin 300mg Suppository RC 02/22/25 13:14 300 mg ONCE ONE Administration Diphenhydramine HCl 50 mg 02/22/25 13:28 02/22/25 14:38 Diphenhydramine 50mg/Ml Vial IV 02/22/25 13:29 50 mg ONCE ONE Administration Heparin Sodium/Sodium Chloride 3,000 unit 02/22/25 13:28 02/22/25 14:38 Heparin 1,000 Units/500ml Ns (Drug Enforcement Agent) IV 02/22/25 13:29 3,000 unit ONCE ONE Administration Lactated Ringer's 1,000 mls @ 999 mls/hr 02/22/25 12:58 02/22/25 13:12 Lactated Ringer's 1000 Ml Bag IV 02/22/25 13:58 999 mls/hr .Q1H1M ONE Administration Piperacillin Sod/Tazobactam 50 mls @ 100 mls/hr 02/22/25 12:58 02/22/25 13:54 Sod 3.375 gm/ Sodium Chloride IV 02/22/25 13:27 100 mls/hr ONCE ONE Administration Iopamidol 80 ml 02/22/25 12:38 02/22/25 12:39 Iopamidol-370 (76%);100ml Bottle IV 02/22/25 12:39 80 ml ONCE ONE Administration Iopamidol 80 ml 02/22/25 12:47 02/22/25 12:48 Iopamidol-370 (76%);100ml Bottle IV 02/22/25 12:48 80 ml ONCE ONE Administration Lidocaine HCl 10 ml 02/22/25 13:28 02/22/25 14:38 Lidocaine 1% 10ml Mdv IJ 02/22/25 13:29 10 ml ONCE ONE Administration Lidocaine HCl 10 ml 02/22/25 13:28 Lidocaine 1% 5ml Pf Vial IJ 02/22/25 13:29 ONCE ONE Miscellaneous 1 each 02/22/25 13:00 Vancomycin Consult Request NOTAPPLIC 03/24/25 12:59 CONSULT PHARMACY [facility] Morphine Sulfate 4 mg 02/22/25 13:28 Morphine 4mg/Ml Syringe IV 02/22/25 13:29 ONCE ONE Sodium Chloride 50 ml 02/22/25 12:38 02/22/25 12:39 0.9 % Sodium Chloride 50 Ml Vial IV 02/22/25 12:39 50 ml ONCE ONE Administration Sodium Chloride 50 ml 02/22/25 12:47 02/22/25 12:48 0.9 % Sodium Chloride 50 Ml Vial IV 02/22/25 12:48 50 ml ONCE ONE Administration Sodium Chloride 25 ml 02/22/25 13:28 Sodium Chloride 0.9% 25ml Bag IV 02/22/25 13:29 ONCE ONE Verapamil HCl 2.5 mg 02/22/25 13:28 02/22/25 14:38 Verapamil 2.5mg/Ml 2ml Vial IV 02/22/25 13:29 2.5 mg ONCE ONE Administration ORDERS Category Date Time Status CT abdomen pelvis w con Stat Cat Scan 02/22/25 12:[address] angio chest PE protocol Stat Cat Scan 02/22/25 12:[address] angio head Stat Cat Scan 02/22/25 12:[address] angio neck Stat Cat Scan 02/22/25 12:[address] cervical spine wo con Stat Cat Scan 02/22/25 12:[address] head/brain wo con Stat Cat Scan 02/22/25 12:27 Completed Activated Partial Thrombo Time Stat Lab 02/22/25 13:00 Received Ammonia Stat Lab 02/22/25 12:27 Ordered BNP [NT Pro Brain Natriuretic Pep.] Stat Lab 02/22/25 13:00 Completed Complete Blood Count Auto Diff Stat Lab 02/22/25 13:00 Results Comprehensive Metabolic Panel Stat Lab 02/22/25 13:00 Received Diarrhea 23 Panel, PCR Stat Lab 02/22/25 12:57 Ordered Drug Screen,Urine Stat Lab 02/22/25 12:27 Ordered Ethyl Alcohol Stat Lab 02/22/25 13:00 Completed Lipase Stat Lab 02/22/25 13:00 Completed Lipid Panel Stat Lab 02/22/25 13:00 Received Prothrombin Time INR Stat Lab 02/22/25 13:00 Received Rapid PCR Covid and Flu A/B Stat Lab 02/22/25 13:44 Received T4 (Thyroxine) Stat Lab 02/22/25 13:00 Received TSH [Thyroid Stimulating Hormone] Stat Lab 02/22/25 13:00 Received Troponin I Q3H Lab 02/22/25 15:30 Ordered Troponin I Q3H Lab 02/22/25 18:30 Ordered Troponin I Stat Lab 02/22/25 13:00 Received Urinalysis and Microscopic Stat Lab 02/22/25 12:27 Ordered Blood Culture Stat Micro 02/22/25 13:00 Ordered VBG [Venous Blood Gas] Stat RT 02/22/25 12:29 Completed Medical Decision Narrative: In summary, this patient is a 89-year-old male presenting to the Emergency Department for evaluation of unresponsiveness/altered mental status. Differential diagnoses considered include but are not limited to sepsis, CVA, intracranial hemorrhage, ACS, among others. Ruling out the most morbid conditions drove assessment. It should be noted patient's history includes dementia, urinary issues, prior history of prostate cancer which may or may not be at goal therapy. This complicates all aspects of care by increasing patient's risk for morbidity. On exam, the patient is very ill-appearing, hypotensive, tachycardic, hypoxic with profoundly altered mental status. He is able to follow commands such as squeeze my hands or wiggle his toes, but he is too weak to follow any other commands. He has incomprehensible speech and does not verbally respond well given his acute distress. He arrives on a nonrebreather per EMS with continued hypoxia. Systolics in the 70s. Last known well was around 10:00 this morning. I do not have any obvious focal deficits, however out of an abundance of precaution elected to obtain stat stroke CT scans as well as CTA chest, abdomen, and pelvis given acute onset of undifferentiated shock. Patient was given a liter bolus of IV fluids via pressure bag to see if his blood pressure improves. I did not give a full sepsis bolus, as he has edema and respiratory failure, and I felt him overload would be detrimental to him. I also ordered Levophed in case his pressure does not respond to fluid resuscitation. For undifferentiated shock, I ordered IV vancomycin and Zosyn. Very broad lab workup was sent including infectious, metabolic, cardiac workup. EKG was obtained that was independently interpreted by myself at [address] depression/changes that are concerning for acute ischemic process, though not truly a STEMI. I immediately called to discuss the case with cardiology, and I began goals of care discussions with the family. Cardiology advised that it certainly does look ischemic even though not a STEMI. I ordered rectal aspirin for the patient. After shared decision-making with the patient's family and goals of care discussion, they would like to proceed with cath if we feel this is truly a heart attack. They state they would not want to put him through heroic surgical intervention, such as open heart surgery, however. I closed the loop with Dr. Diaz who plans to take the patient for cath barring anything else explaining the patient's acute undifferentiated shock on workup I independently interpreted CT scans and noted no intracranial hemorrhage, no obvious large vessel occlusion, no PE, no obvious bowel obstruction. Please see radiology read for final interpretation. They note pleural effusions and cardiomegaly as well as colitis. CBC demonstrates leukopenia and anemia. The anemia is chronic and not significantly changed from prior. VBG demonstrates significant elevation in lactic acid. Chemistry did not result while he was in the emergency department. I called lab and had a discussion with them and they stated that the chemistry did not run properly initially, but they are running it. Ultimately, family elected to proceed with catheterization and the patient was transported to the [facility] in stable condition, actively on Levophed, with chemistries pending. Critical Care Critical Care Time Critical Care Time: Yes Attestation: On 02/22/25, the high probability of a clinically significant, sudden or life threatening deterioration of the following system(s) required my full and direct attention, intervention and personal management. The time I documented below is in addition to time spent performing reported procedures but includes the following listed in this critical care notation. Total Time Total Critical Care Time: 45
[2025-02-22 13:09] LABS: Hematocrit 24.5 % (42.0-52.0); Hemoglobin 8.1 g/dL (14.1-18.0); Immature Granulocytes % 0.6 %; Mean Corpuscular HGB Conc 33.1 g/dL (31.8-35.4); Mean Corpuscular Hemoglobin 30.5 pg (27.0-31.2); Mean Corpuscular Volume 92.1 fl (80-94); Nucleated Red Blood Cells % 0 %; Platelet Count 161 K/mm3 (142-424); Red Blood Count 2.66 M/mm3 (4.60-6.20); Red Cell Distribution Width-SD 48.3 fL; White Blood Count 3.4 K/mm3 (4.8-10.8)
[2025-02-22] MEDS: LACTATED RINGERS 1000ML 1,000 ML 999 ML IV (13:12)
[2025-02-22 13:14] LABS: VBG HCO3 17.8 mmol/L (23-30); VBG PCO2 26.5 mmol/L (35-51); VBG PH 7.45 mmol/L (7.31-7.41); VBG PO2 181.5 mmol/L (28-40)
[2025-02-22 13:15] LABS: Lactate Venous 7.4 mmol/L (0.4-2.0)
[2025-02-22] MEDS: ASPIRIN 300MG SUPPOSITORY 300 MG RC (13:19)
[2025-02-22 13:27] LABS: Activated Partial Thrombo Time 29.4 seconds (22.8-30.6); INR 1.27 (0.9-1.1); Prothrombin Time 13.8 seconds (10.1-12.5)
[2025-02-22 13:48] LABS: Coronavirus 19, PCR Not Detected (NotDetected); Influenza A, PCR Not Detected (NotDetected); Influenza B, PCR Not Detected (NotDetected)
[2025-02-22] MEDS: PIPERACILLIN/TAZO 3.375 GM in 0.9 % SODIUM CHLORIDE 50 ML IV (13:54)
--- NOTE | 2025-02-22 14:15 | IR_ITS ---
APPROVED REPORT Patient Location: [facility] Technician: Ricardo Tirado, RT (R) PROCEDURES Left heart catheterization Left ventriculogram Selective coronary angiogram INDICATION Acute coronary syndrome Informed consent was obtained prior to the procedure. COMPLICATIONS None Estimated Blood Loss: Less than 10 mls TECHNIQUE One percent lidocaine used to anesthetize the right anterior aspect of the wrist. The right radial artery was accessed via the Seldinger technique. A 6 [place] sheath was placed in the right radial artery. 2.5 mg of Verapamil, 800 mcg of nitroglycerin, 1mg Lidocaine and 5000 U Heparin were given through the arterial sheath. The JL3 catheter was also used to perform left heart catheterization, left ventriculogram and selective coronary angiogram. At the end of the procedure the sheath was removed good hemostasis was achieved using Traclet band, patient was transferred to the postop holding area in stable condition. ANGIOGRAPHIC RESULTS The left main artery Patent The left anterior descending artery Has proximal smooth 40% stenoses with mid vessel 40 and 50% stenosis with an focal 60% smooth stenosis distal to the second diagonal artery The circumflex artery Massively large and dominant widely patent through the proximal segment with 30% proximal stenoses and a large first obtuse marginal artery. The terminal obtuse marginal artery is 2 mm in diameter and has a proximal concentric 80% stenosis with a mid vessel 50% stenosis The right coronary artery Nondominant and patent The CARTER ventriculogram reveals Normal 65% The left ventricular end-diastolic pressure 15 to 20 mmHg IMPRESSION Coronary artery disease as described above none of which is causing patient's hypotension and clinical sequelae. Normal ejection fraction Normal to mildly elevated LVEDP PLAN 1. Medical management for coronary disease 2. Evaluation of noncardiac etiologies for hypotension. Consider sepsis Electronically signed by : Peewee Diaz MD 02/22/2025 15:05:52
[2025-02-22 14:21] LABS: NT Pro Brain Natriuretic Pep. 3200 pg/mL (0-450)
[2025-02-22] MEDS: HEPARIN 1,000 UNITS/500ML NS (CATH LAB) 3000 UNIT IV (14:38)
[2025-02-22] MEDS: NITROGLYCERIN 800MCG/8ML SYR (CATH LAB) 800 MCG IA (14:38)
[2025-02-22] MEDS: LIDOCAINE 1% 10ML MDV 10 ML IJ (14:38)
[2025-02-22] MEDS: VERAPAMIL 2.5MG/ML 2ML VIAL 2.5 MG IV (14:38)
[2025-02-22] MEDS: 0.9 % SODIUM CHLORIDE 500 ML 25 ML IV (14:38)
[2025-02-22] MEDS: HEPARIN 1,000 UNITS/ML 10ML VIAL (CATH LAB) 5000 UNIT IV (14:38)
--- NOTE | 2025-02-22 14:42 | SUR.PHASEII ---
lab called to know result of pt chemistry labs. lab informed this RN that it would be around 15 min d/t them having to manually program lab values. aware.
[2025-02-22 14:43] LABS: Lipase 64 U/L (23-300)
[2025-02-22 14:52] LABS: Albumin Level 2.2 g/dl (3.5-5.0); Chloride 107 mmol/L (98-107); Sodium 136 mmol/L (136-145)
[2025-02-22 14:54] LABS: Blood Urea Nitrogen 17 mg/dl (9-20); Creatinine Clearance Estimated 49 mL/min (50-200); Creatinine,Serum 1.10 mg/dl (0.66-1.25); Estimated Glomerular Filt Rate 63 ml/min (>60); GFR (African American) 76 ML/MIN (>60)
[2025-02-22 14:55] LABS: Alanine Aminotransferase 21 U/L (12-78); Albumin/Globulin Ratio 0.6 (1.1-1.8); Alkaline Phosphatase 91 U/L (38-126); Anion Gap 12.2 mEq/L (5-15); Aspartate Amino Transferase 40 U/L (17-59); Bilirubin,Total 1.0 mg/dl (0.2-1.3); Calcium 8.0 mg/dl (8.4-10.2); Carbon Dioxide 19 mmol/L (22.0-30.0); Cholesterol 108 mg/dl (140-200); Globulin 3.6 g/dL (1.3-3.2); Glucose 89 mg/dl (74-100); HDL Cholesterol 23 mg/dl (40-60); Total Protein,Serum 5.8 g/dl (6.3-8.2); Triglycerides 58 mg/dl (30-150)
[2025-02-22 15:09] LABS: Potassium 2.2 mmoL/L (3.5-5.1); Troponin I 0.02 ng/ml (0.00-0.034)
[2025-02-22 15:11] LABS: T4 (Thyroxine) 6.6 ug/dl (5.53-11.0)
--- NOTE | 2025-02-22 15:13 | SUR.PHASEII ---
notified of critical potassium of 2.0. no new orders
[2025-02-22] MEDS: IOPAMIDOL-370 (76%);100ML BOTTLE 50 ML IV (15:18)
[2025-02-22 15:23] LABS: RBC Morphology Normal; Total Cells Counted 100
--- NOTE | 2025-02-22 15:44 | SW/DCPLANNER ---
Patient currently resides at [facility]. Updated patient information has been faxed to [facility]/ [facility]. Discharge date is unknown at this time. CM will continue to follow up.
[2025-02-22 15:55] LABS: Thyroid Stimulating Hormone 12.50 uIU/mL (0.465-4.68)
--- NOTE | 2025-02-22 16:55 | EXP.HP ---
History of Present Illness *Admission Date: 02/22/25 *Reason for visit:: AMS *History of present illness: Patient is a 89-year-old male with past medical history of prostatic cancer bladder cancer dementia hypertension presenting to the emergency department for evaluation with concern for altered mental status. Patient at time of my evaluation is unable to provide history, patient appears altered and is not able to follow clear commands hold conversations. Patient lives in assisted living facility of [place]. Reportedly patient was walking this morning and had breakfast himself. Patient was noted to be hypoxic hypotensive tachycardic by EMS. Patient is a DNR/DNI. [facility] Disclaimer: The information contained in this section may have been updated after the patient was seen, as this information can be updated by other users. Medical History Parkinsons Normal colonoscopy Hypertension Dementia Cancer Surgical History History of cancer surgery Social History (Updated 02/22/25 @ 15:51 by Arabella Burks RN) Smoking Status: Unknown if ever smoked alcohol intake: never substance use type: denies use current occupational status: retired Travel in the last 8 weeks?: None household members: spouse and family housing: [facility]pc Have you lived/traveled outside [place] in past 30 days?: No Contact w/someone who lives/traveled outside US past 30 days?: No Exposure to someone with infectious disease in past 14 days?: No Do you have a fever (greater than 100.4 F or 38 C)?: No Have you tested positive for COVID-19?: No Exposed to someone with COVID-19 in past 14 days?: No Do you have a sore throat?: No Do you have a cough?: No Do you have any weakness?: No Are you experiencing any nausea/vomitting?: No Do you have any diarrhea?: No Are you experiencing any unusual bleeding?: No Do you have any muscle aches/pain?: No Do you have any abdominal pain?: No Are you experiencing loss of taste or smell?: No Other Medical History Have you received the Flu Vaccine for this season: Yes Have you received the Pneumonia Vaccine: Yes Review of Systems Review of Systems Review of systems:: unable to obtain Meds Home Medications and Allergies Home Medications ?Medication ?Instructions ?Recorded ?Confirmed ?Type acetaminophen 325 mg capsule 325 mg PO Q6HP PRN Pain, Mild 12/03/17 02/22/25 History (Tylenol) calcium carbonate (Tums) 200 mg PO AC Supplement 12/03/17 02/22/25 History cholecalciferol (vitamin D3) 25 1,000 unit PO DAILY Supplement 12/03/17 02/22/25 History mcg (1,000 unit) capsule aspirin 81 mg chewable tablet 81 mg PO DAILY HEART HEALTH 10/20/22 02/22/25 History dextran 70-hypromellose (PF) 0.1 1 drp ophthalmic (eye) QID DRY EYES 10/20/22 02/22/25 History %-0.3 % eye drops in a dropperette donepezil 10 mg tablet 10 mg PO DAILY Dementia 10/20/22 02/22/25 History sennosides 8.6 mg tablet (senna) 8.6 mg PO DAILYP PRN Constipation 10/20/22 02/22/25 History multivitamin with iron 1 tab PO DAILY 02/22/25 02/22/25 History polyethylene glycol 3350 17 17 g PO DAILY 02/22/25 02/22/25 History gram/dose oral powder (Miralax) pregabalin 50 mg capsule 50 mg PO HS 02/22/25 02/22/25 History sennosides 8.6 mg capsule (senna) 8.6 mg PO HS 02/22/25 02/22/25 History New Prescriptions to Start Prescriptions: Allergies Allergy/AdvReac Type Severity Reaction Status Date / Time No Known Allergies Allergy Verified 03/24/22 15:12 Exam Data for Last 24 hours Vital signs and Labs for Last 24 Hours: Temp Pulse Resp BP Pulse Ox O2 Del Method O2 Flow Rate 98.1 F 80 18 99/51 L 93 L Non-Rebreather 15 02/22/25 14:35 02/22/25 15:20 02/22/25 15:20 02/22/25 15:20 02/22/25 15:20 02/22/25 15:20 02/22/25 15:20 Laboratory Results - last 24 hr 02/22/25 12:29: VBG pH 7.45 H, VBG pCO2 26.5 L, VBG pO2 181.5 H, VBG HCO3 17.8 L, VBG Total CO2 18.7 L, VBG O2 Saturation 99.5 H, VBG Base Excess -6.2 L, VBG Lactic Acid 7.4 H 02/22/25 13:00: WBC 3.4 L, RBC 2.66 L, Hgb 8.1 L, Hct 24.5 L, MCV 92.1, MCH 30.5, MCHC 33.1, RDW 14.5, Plt Count 161, MPV 9.7, Neut % (Auto) 94.7 H, Lymph % (Auto) 4.1 L, [place] % (Auto) 0.3 L, Eos % (Auto) 0.0 L, Baso % (Auto) 0.3, Neut # (Auto) 3.2, Lymph # (Auto) 0.1 L, [place] # (Auto) 0.0 L, Eos # (Auto) 0.0, Baso # (Auto) 0.0, Total Counted 100, Neutrophils % (Manual) 93 H, Lymphocytes % (Manual) 7 L, Platelet Estimate Normal, RBC Morphology Normal, PT 13.8 H, INR 1.27 H, APTT 29.4, Sodium 136, Potassium 2.2 L*, Chloride 107, Carbon Dioxide 19 L, Anion Gap 12.2, BUN 17, Creatinine 1.10, Estimated Creat Clear 49, Estimated GFR 63, Est GFR ( Amer) 76, Glucose 89, Calcium 8.0 L, Total Bilirubin 1.0, AST 40, ALT 21, Alkaline Phosphatase 91, Troponin I 0.02, NT-Pro-B Natriuret Pep 3200 H, Total Protein 5.8 L, Albumin 2.2 L, Globulin 3.6 H, Albumin/Globulin Ratio 0.6 L, Triglycerides 58, Cholesterol 108 L, LDL Cholesterol Direct 56.10 L, VLDL Cholesterol 12, HDL Cholesterol 23 L, Cholesterol/HDL Ratio 4.7 H, Lipase 64, TSH 12.50 H, Thyroxine (T4) 6.6, Plasma/Serum Alcohol < 10 02/22/25 13:44: SARS-CoV-2 (PCR) Not detected, Influenza A Untype (PCR) Not detected, Influenza Type B (PCR) Not detected I & O for Last 24 hours: Intake & Output 02/19/25 02/20/25 02/21/25 07/30/25 23:59 23:59 23:59 23:59 Weight 75.75 kg Constitutional Constitutional: no acute distress *Routine HEENT Exam Head: Present normocephalic Eye: Present EOMI and PERRL ENT: Present mucous membranes moist *Routine Neck Exam Neck: Present supple; Absent lymphadenopathy *Routine Respiratory Exam Respiratory: Present CTA bilaterally *Routine Cardiovascular Exam Cardiovascular: Present RRR *Routine Abdominal Exam Abdominal: Present soft and normoactive bowel sounds; Absent tenderness *Routine Rectal Exam Rectal:: deferred *Routine Genitalia Exam Genitalia:: deferred *Routine Extremities Exam Extremities: Absent cyanosis, clubbing or edema *Routine Skin Exam Skin: Present warm; Absent rash *Routine Neurological Exam Neurological: Present altered mental status Comments: aphasic not following commands Assessment and Plan *Assessment and plan (1) ST segment depression: Status: Acute Category: Medical Code(s): R94.31 - Abnormal electrocardiogram [ECG] [EKG] (2) AMS (altered mental status): Status: Acute Category: Medical Code(s): R41.82 - Altered mental status, unspecified (3) Prostate cancer: Status: Acute Category: Medical Code(s): C61 - Malignant neoplasm of prostate (4) History of bladder cancer: Status: Acute Category: Medical Code(s): Z85.51 - Personal history of malignant neoplasm of bladder (5) UTI (urinary tract infection): Status: Acute Category: Medical Code(s): N39.0 - Urinary tract infection, site not specified Plan Patient is a 89-year-old male with past medical history of prostatic cancer bladder cancer dementia hypertension presenting to the emergency department for evaluation with concern for altered mental status. Patient at time of my evaluation is unable to provide history, patient appears altered and is not able to follow clear commands hold conversations. Patient lives in assisted living facility of [place]. Reportedly patient was walking this morning and had breakfast himself. Patient was noted to be hypoxic hypotensive tachycardic by EMS. Patient is a DNR/DNI. Assessment and plan Aphasia Rule out CVA CT head, CTA head and neck-negative for acute intracranial process Order MRI brain Consult to speech therapy, n.p.o. for now Due to history of prostate cancer, bladder cancer, patient is difficult Young, unable to get urine sample, will start empirical Rocephin Hypokalemia of 2.2 Monitor and replace electrolytes Monitor on cardiac telemetry Acute coronary syndrome Patient is status post left heart cath-no stenting was needed Consult cardiology Monitor on cardiac telemetry Resume aspirin when able to take p.o. Urinary retention History of bladder cancer History of prostate cancer Patient is a difficult Young insertion, patient may need to be transferred to outside facility for further management of urinary retention as well as aphasia DVT prophylaxis-subcutaneous heparin
[2025-02-22 17:13] LABS: Reflex Lactic Add Lactic Reflex
[2025-02-22 17:48] LABS: Ammonia < 9 umol/L (9-30)
[2025-02-22 17:55] LABS: Lactic Acid Follow Up (RFLX 1) 7.1 mmol/L (0.7-2.1)
[2025-02-22 18:07] LABS: Potassium 2.6 mmoL/L (3.5-5.1); Troponin I 0.29 ng/ml (0.00-0.034)
--- NOTE | 2025-02-22 18:28 | EXP.DC.SUM ---
General Admission date:: 02/22/25 Discharge date: 02/22/25 HPI HPI HPI: Patient is a 89-year-old male with past medical history of prostatic cancer bladder cancer dementia hypertension presenting to the emergency department for evaluation with concern for altered mental status. Patient at time of my evaluation is unable to provide history, patient appears altered and is not able to follow clear commands hold conversations. Patient lives in assisted living facility of [place]. Reportedly patient was walking this morning and had breakfast himself. Patient was noted to be hypoxic hypotensive tachycardic by EMS. Patient is a DNR/DNI. Hospital Course Hospital Course Hospital Course: see same date HnP for physical exam Patient appears aphasic, not following commands, he is altered, patient will be discharged to higher level of care for neurology services Patient has a history of prostate cancer, bladder cancer, patient is retaining urine, Young tried x 2 without success, patient will be transferred to higher level of care at [facility] for urology services Exam Data for Last 24 hours Vital signs and Labs for Last 24 Hours: Temp Pulse Resp BP Pulse Ox O2 Del Method O2 Flow Rate 97.8 F 80 20 102/44 L 92 L Nasal Cannula 6 02/22/25 15:50 02/22/25 17:20 02/22/25 17:20 02/22/25 17:20 02/22/25 17:20 02/22/25 17:20 02/22/25 17:20 Laboratory Results - last 24 hr 02/22/25 12:29: VBG pH 7.45 H, VBG pCO2 26.5 L, VBG pO2 181.5 H, VBG HCO3 17.8 L, VBG Total CO2 18.7 L, VBG O2 Saturation 99.5 H, VBG Base Excess -6.2 L, VBG Lactic Acid 7.4 H 02/22/25 13:00: WBC 3.4 L, RBC 2.66 L, Hgb 8.1 L, Hct 24.5 L, MCV 92.1, MCH 30.5, MCHC 33.1, RDW 14.5, Plt Count 161, MPV 9.7, Neut % (Auto) 94.7 H, Lymph % (Auto) 4.1 L, [place] % (Auto) 0.3 L, Eos % (Auto) 0.0 L, Baso % (Auto) 0.3, Neut # (Auto) 3.2, Lymph # (Auto) 0.1 L, [place] # (Auto) 0.0 L, Eos # (Auto) 0.0, Baso # (Auto) 0.0, Total Counted 100, Neutrophils % (Manual) 93 H, Lymphocytes % (Manual) 7 L, Platelet Estimate Normal, RBC Morphology Normal, PT 13.8 H, INR 1.27 H, APTT 29.4, Sodium 136, Potassium 2.2 L*, Chloride 107, Carbon Dioxide 19 L, Anion Gap 12.2, BUN 17, Creatinine 1.10, Estimated Creat Clear 49, Estimated GFR 63, Est GFR ( Amer) 76, Glucose 89, Calcium 8.0 L, Total Bilirubin 1.0, AST 40, ALT 21, Alkaline Phosphatase 91, Troponin I 0.02, NT-Pro-B Natriuret Pep 3200 H, Total Protein 5.8 L, Albumin 2.2 L, Globulin 3.6 H, Albumin/Globulin Ratio 0.6 L, Triglycerides 58, Cholesterol 108 L, LDL Cholesterol Direct 56.10 L, VLDL Cholesterol 12, HDL Cholesterol 23 L, Cholesterol/HDL Ratio 4.7 H, Lipase 64, TSH 12.50 H, Thyroxine (T4) 6.6, Plasma/Serum Alcohol < 10 02/22/25 13:44: SARS-CoV-2 (PCR) Not detected, Influenza A Untype (PCR) Not detected, Influenza Type B (PCR) Not detected 02/22/25 17:27: Potassium 2.6 L*, Lactate 7.1 H, Ammonia < 9 L, Troponin I 0.29 H I & O for Last 24 hours: Intake & Output 02/19/25 02/20/25 02/21/25 02/22/25 23:59 23:59 23:59 23:59 Weight 75.75 kg Results Data Completed and Pending Labs on day of discharge: Labs from last 24 hours 02/22/25 02/22/25 02/22/25 17:27 13:44 13:00 WBC 3.4 L RBC 2.66 L Hgb 8.1 L Hct 24.5 L MCV 92.1 MCH 30.5 MCHC 33.1 RDW 14.5 Plt Count 161 MPV 9.7 Neut % (Auto) 94.7 H Lymph % (Auto) 4.1 L [place] % (Auto) 0.3 L Eos % (Auto) 0.0 L Baso % (Auto) 0.3 Neut # (Auto) 3.2 Lymph # (Auto) 0.1 L [place] # (Auto) 0.0 L Eos # (Auto) 0.0 Baso # (Auto) 0.0 Total Counted 100 Neutrophils % (Manual) 93 H Lymphocytes % (Manual) 7 L Platelet Estimate Normal RBC Morphology Normal PT 13.8 H INR 1.27 H APTT 29.4 VBG pH VBG pCO2 VBG pO2 VBG HCO3 VBG Total CO2 VBG O2 Saturation VBG Base Excess VBG Lactic Acid Sodium 136 Potassium 2.6 L* 2.2 L* Chloride 107 Carbon Dioxide 19 L Anion Gap 12.2 BUN 17 Creatinine 1.10 Estimated Creat Clear 49 Estimated GFR 63 Est GFR ( Amer) 76 Glucose 89 Lactate 7.1 H Calcium 8.0 L Total Bilirubin 1.0 AST 40 ALT 21 Alkaline Phosphatase 91 Ammonia < 9 L Troponin I 0.29 H 0.02 NT-Pro-B Natriuret Pep 3200 H Total Protein 5.8 L Albumin 2.2 L Globulin 3.6 H Albumin/Globulin Ratio 0.6 L Triglycerides 58 Cholesterol 108 L LDL Cholesterol Direct 56.10 L VLDL Cholesterol 12 HDL Cholesterol 23 L Cholesterol/HDL Ratio 4.7 H Lipase 64 TSH 12.50 H Thyroxine (T4) 6.6 Plasma/Serum Alcohol < 10 SARS-CoV-2 (PCR) Not detected Influenza A Untype (PCR) Not detected Influenza Type B (PCR) Not detected 02/22/25 12:29 WBC RBC Hgb Hct MCV MCH MCHC RDW Plt Count MPV Neut % (Auto) Lymph % (Auto) [place] % (Auto) Eos % (Auto) Baso % (Auto) Neut # (Auto) Lymph # (Auto) [place] # (Auto) Eos # (Auto) Baso # (Auto) Total Counted Neutrophils % (Manual) Lymphocytes % (Manual) Platelet Estimate RBC Morphology PT INR APTT VBG pH 7.45 H VBG pCO2 26.5 L VBG pO2 181.5 H VBG HCO3 17.8 L VBG Total CO2 18.7 L VBG O2 Saturation 99.5 H VBG Base Excess -6.2 L VBG Lactic Acid 7.4 H Sodium Potassium Chloride Carbon Dioxide Anion Gap BUN Creatinine Estimated Creat Clear Estimated GFR Est GFR ( Amer) Glucose Lactate Calcium Total Bilirubin AST ALT Alkaline Phosphatase Ammonia Troponin I NT-Pro-B Natriuret Pep Total Protein Albumin Globulin Albumin/Globulin Ratio Triglycerides Cholesterol LDL Cholesterol Direct VLDL Cholesterol HDL Cholesterol Cholesterol/HDL Ratio Lipase TSH Thyroxine (T4) Plasma/Serum Alcohol SARS-CoV-2 (PCR) Influenza A Untype (PCR) Influenza Type B (PCR) DS: Diagnosis Discharge Diagnosis (1) ST segment depression: Status: Acute Code(s): R94.31 - Abnormal electrocardiogram [ECG] [EKG] (2) AMS (altered mental status): Status: Acute Code(s): R41.82 - Altered mental status, unspecified (3) Prostate cancer: Status: Acute Code(s): C61 - Malignant neoplasm of prostate (4) History of bladder cancer: Status: Acute Code(s): Z85.51 - Personal history of malignant neoplasm of bladder (5) UTI (urinary tract infection): Status: Acute Code(s): N39.0 - Urinary tract infection, site not specified Meds Home Medications and Allergies Home Medications ?Medication ?Instructions ?Recorded ?Confirmed ?Type acetaminophen 325 mg capsule 325 mg PO Q6HP PRN Pain, Mild 12/03/17 02/22/25 History (Tylenol) calcium carbonate (Tums) 200 mg PO AC Supplement 12/03/17 02/22/25 History cholecalciferol (vitamin D3) 25 1,000 unit PO DAILY Supplement 12/03/17 02/22/25 History mcg (1,000 unit) capsule aspirin 81 mg chewable tablet 81 mg PO DAILY HEART HEALTH 10/20/22 02/22/25 History dextran 70-hypromellose (PF) 0.1 1 drp ophthalmic (eye) QID DRY EYES 10/20/22 02/22/25 History %-0.3 % eye drops in a dropperette donepezil 10 mg tablet 10 mg PO DAILY Dementia 10/20/22 02/22/25 History sennosides 8.6 mg tablet (senna) 8.6 mg PO DAILYP PRN Constipation 10/20/22 02/22/25 History multivitamin with iron 1 tab PO DAILY 02/22/25 02/22/25 History polyethylene glycol 3350 17 17 g PO DAILY 02/22/25 02/22/25 History gram/dose oral powder (Miralax) pregabalin 50 mg capsule 50 mg PO HS 02/22/25 02/22/25 History sennosides 8.6 mg capsule (senna) 8.6 mg PO HS 02/22/25 02/22/25 History New Prescriptions to Start Prescriptions: Allergies Allergy/AdvReac Type Severity Reaction Status Date / Time No Known Allergies Allergy Verified 03/24/22 15:12 Discharge Plan Disposition Patient Disposition: [facility] Bed Condition: Critical Discharge Order Discharge Orders: Discharge Order (Routine); Ordered 02/22/25 Ordered By: Francia Rutledge Follow up Plan Prescriptions/Medication Reconciliation: Continued calcium carbonate [Tums] 200 mg calcium (500 mg) tablet,chewable 200 mg PO AC acetaminophen [Tylenol] 325 mg capsule 325 mg PO Q6HP PRN (Reason: Pain, Mild) cholecalciferol (vitamin D3) 1,000 unit capsule 1,000 unit PO DAILY donepezil 10 mg tablet 10 mg PO DAILY aspirin 81 mg Tablet,Chewable 81 mg PO DAILY sennosides [senna] 8.6 mg Tablet 8.6 mg PO DAILYP PRN (Reason: Constipation) dextran 70-hypromellose (PF) 0.1-0.3 % Dropperette 1 drp OPHTHALMIC (EYE) QID polyethylene glycol 3350 [Miralax] 17 gram/dose Powder 17 g PO DAILY multivitamin with iron Tablet 1 tab PO DAILY senna 8.6 mg Capsule 8.6 mg PO HS pregabalin 50 mg capsule 50 mg PO HS Problem Reconciliation Problems Reviewed?: Yes Patient Discharge Instructions Patient Instructions: Shock, DI for Cardiac Catheterization, DI for Surgical Site Infection, DI for Altered Mental Status, DI for Colitis Print Language: Togolese Providers Primary Care Provider: Provider,Referral Admit Provider: Francia Rutledge Attending Provider: Peewee Diaz
[2025-02-22] MEDS: CEFTRIAXONE 1 GM 1 GM in 0.9 % SODIUM CHLORIDE 50 ML IV (18:42)
[2025-02-22 19:37] LABS: Reflex Lactic (2 hrs) Add Lactic Reflex
--- NOTE | 2025-02-22 19:45 | PC.NURSE ---
Pt alert to self only. Pt hypotensive this shift. MD made aware of vitals. Pt was on 6L NC. Pt's O2 saturations dropped to mid 70's-80's this afternoon. Pt had to be put back on the non-rebreather at 15L with improved saturations. Pt has a right radial site from heart cath with radial band still in place d/t small amount of bloody drainage from site. Pt has not had any urinary output this shift. Pt bladder scanned showing 451ml's. MD made aware. Young catheter insertion ordered. Young unable to be placed d/t resistance. MD made aware. Purewick in place at this time. IV abx infused. IV potassium replacement per protocol started. Report called to [facility] for transfer to ICU d/t hypotension. Pt resting supine in bed with no further needs voiced at this time. Call light within reach.
[2025-02-22 20:48] LABS: Lactic Acid Follow up (RFLX 2) 7.3 mmol/L (0.7-2.1)
[2025-02-22] MEDS: VANCOMYCIN/WATER FOR INJ (PEG) 1.25 GM/250 ML PIGGYBACK IV (20:59)
[2025-02-22] MEDS: TAMSULOSIN 0.4MG CAPSULE 0.8 MG PO (21:01)
[2025-02-22] MEDS: NOREPINEPHRINE BITARTRATE/D5W 8 MG/250 ML PLAST..BAG 15 MG IV (21:03)
[2025-02-22 21:19] LABS: Troponin I 0.84 ng/ml (0.00-0.034)
[2025-02-22 21:36] LABS: Free T4 (Free Thyroxine) 1.34 ng/dl (0.78-2.19)
[2025-02-22 21:47] LABS: Procalcitonin 170 ng/mL (0.0-2.0)
--- NOTE | 2025-02-22 23:39 | PC.NURSE ---
1 attempt at placing a catheter with no success
[2025-02-23] VITALS: BP 134/62; PULSE 100; PULSE 110; PULSE 94; RESP 21; TEMP 37.4; O2SAT 91; O2SAT 93
--- NOTE | 2025-02-23 00:50 | PC.NURSE ---
Pt transferred to [facility] @ 0041 M Elis SRNA
[2025-02-23 03:19] LABS: Acinetobacter calcoaceticus-ba Not Detected; Bacteroides fragilis Not Detected; CTX-M Not Detected; Candida auris Not Detected; Candida glabrata Not Detected; Enterobacterales Detected; Enterococcus faecalis Not Detected; Enterococcus faecium Not Detected; IMP Not Detected; KPC Not Detected; Klebsiella aerogenes Not Detected; Klebsiella pneumoniae grp Not Detected; NDM Not Detected; OXA-48-like Not Detected; Proteus spp. Not Detected; Salmonella spp. Not Detected; Serratia marcescens Not Detected; Staphylococcus epidermidis Not Detected; Staphylococcus lugdunensis Not Detected; Staphylococcus spp. Not Detected; Stenotrophomonas maltophilia Not Detected; Streptococcus agalactiae(GrpB) Not Detected; Streptococcus pyogenes Group A Not Detected; Streptococcus spp. Not Detected; VIM Not Detected; mcr-1 Not Detected
--- NOTE | 2025-02-27 09:13 | PC.NURSE ---
blood culture results forwarded to hospitalist.
== END 2025-02-23 00:41 | disposition short-term general hospital (02) | DRG 871 ==
LOC: ER 14:26 → CATHLAB 14:34 → 2ND 15:30 → ICU 18:40
PROVIDERS: Student in an Organized Health Care Education/Training Program; Admitting Provider Internal Medicine; Emergency Provider Emergency Medicine; Visit Provider Internal Medicine
PROC: 4A023N7 Measurement of Cardiac Sampling and Pressure, Left Heart, Percutaneous Approach (ICD-10-PCS; CPT 93452; principal; 2025-02-22 13:55)
DX: A41.51 Sepsis due to Escherichia coli [E. coli] (principal); J96.01 Acute respiratory failure with hypoxia; R57.8 Other shock; R47.01 Aphasia; N39.0 Urinary tract infection, site not specified; R41.82 Altered mental status, unspecified; R33.9 Retention of urine, unspecified; Z66 Do not resuscitate; G20.A1 Parkinson's disease without dyskinesia, without mention of fluctuations; I10 Essential (primary) hypertension; F02.80 Dementia in other diseases classified elsewhere, unspecified severity, without behavioral disturbance, psychotic disturbance, mood disturbance, and anxiety; D64.9 Anemia, unspecified; C61 Malignant neoplasm of prostate; I25.10 Atherosclerotic heart disease of native coronary artery without angina pectoris; E87.6 Hypokalemia; R00.0 Tachycardia, unspecified; R94.31 Abnormal electrocardiogram [ECG] [EKG]; R09.02 Hypoxemia; Z85.51 Personal history of malignant neoplasm of bladder; Z79.82 Long term (current) use of aspirin; Z79.899 Other long term (current) drug therapy
CPT/HCPCS: 36415; 51798; 70450; 70496; 70498; 71275; 72125; 74177; 80053; 80061; 80320; 82140; 82803; 83605; 83690; 83880; 84132; 84145; 84436; 84439; 84443; 84484; 85007; 85025; 85610; 85730; 87040; 87077; 87154; 87186; 87636; 93005; 99152; C1725; C1769; J0696; J1200; J1644; J2003; J2250; J2543; J3375; J3480; J7040; J7120; Q9967